=== PATIENT | male | born 1965 | race Hispanic/Latino ===

== ENCOUNTER 2020-05-17 10:40 | Emergency (ER) | payer OTHER ==
[~2020-05-17] VITALS: Ht 170.2 cm; Wt 99.8 kg
[2020-05-17] MEDS ORDERED: ALBUMIN (HUMAN) 25% 100 ML IV ONE ×2 (11:45→14:09)
[2020-05-17 12:01] LABS: BASOPHILS % (AUTO) 0.5 % (0.0-5.0); EOSINOPHILS % (AUTO) 0.5 % (0.0-8.0); HEMATOCRIT 29.1 % (42-54); LYMPHOCYTES % (AUTO) 20.3 % (21.0-51.0); MEAN CORPUSCULAR HEMOGLOBIN 32.3 pg (27.0-33.0); MEAN CORPUSCULAR HGB CONC 35.1 g/dL (32.0-36.0); MEAN CORPUSCULAR VOLUME 92.1 fL (79-99); MONOCYTES % (AUTO) 11.8 % (3.0-13.0); NEUTROPHILS % (AUTO) 66.6 % (40.0-77.0); PLATELET COUNT (AUTO) 109 K/uL (130-400); RED BLOOD CELL COUNT(AUTO) 3.16 MIL/uL (4.50-6.20); RED CELL DISTRIBUTION WIDTH 12.7 % (11.0-15.5); WHITE BLOOD COUNT (AUTO) 6.3 K/uL (4.8-10.8)
[2020-05-17 12:20] LABS: B-TYPE NATRIURETIC PEPTIDE 12 pg/mL (0-100)
[2020-05-17 12:21] LABS: CREATININE 0.6 mg/dL (0.5-1.5); POTASSIUM 4.6 mmol/L (3.5-5.1)
[2020-05-17 12:22] LABS: INR 1.26 (0.85-1.15); PARTIAL THROMBOPLASTIN TIME 31.7 SEC (26.3-35.5); PROTHROMBIN TIME 13.5 SEC (9.6-11.6)
[2020-05-17 12:25] LABS: BILIRUBIN,TOTAL 1.9 mg/dL (0.2-1.0); TOTAL PROTEIN, SERUM 6.1 g/dL (6.0-8.3)
[2020-05-17] MEDS ORDERED: ALBUMIN (HUMAN) 25% 200 ML IV ONE (12:30)
--- NOTE | 2020-05-17 13:05 | NUR ---
U/S GUIDED PARACENTESIS PROCEDURE PERFORMED BY DR. MEDINA. PUNCTURE SITE RIGHT LOWER QUADRANT OF ABDOMEN AND PATIENT TOLERATED PROCEDURE WELL. TOTAL REMOVED 9.0 LITERS OF CLOUDY YELLOW ASCITES FLUID. END OF PROCEDURE AT 1350. CATHETER REMOVED AND DRESSING APPLIED. NO BLEEDING NOTED. ALBUMIN 25% 50 GRAMS GIVEN DURING PROCEDURE PER [facility] ALBUMIN PROTOCOL. DRESSING DRY AND INTACT. CALLED REPORT TO ED NURSE, HOWARD ECHAVARRIA. PATIENT TRANSPORTED VIA STRETCHER TO ED AT 1410. PT STABLE, AAO X3 WITH NO C/O PAIN.
[2020-05-17 16:41] LABS: APPEARANCE BODY FLUID CLEAR (CLEAR); BODY FLUID WBC 117 /cu. mm.; COLOR,BODY FLUID YELLOW (LT YELLOW); SPECIMENTYPE,BODY FLUID ASCITES; TOTAL VOLUME,BODY FLUID 9000 mL
[2020-05-17 16:42] LABS: BODY FLUID RBC 556 /cu. mm.
[2020-05-17 16:45] LABS: BF LYMPHOCYTE 48 %; BF MONOCYTE 3 %; BF OTHER CELLS 5
== END 2020-05-17 15:06 | disposition home or self-care (01) ==
LOC: EDH 10:40
DX: R18.8 Other ascites (principal); K74.60 Unspecified cirrhosis of liver; Z90.49 Acquired absence of other specified parts of digestive tract
CPT/HCPCS: 36415; 49083; 71045; 80048; 80076; 82550; 83690; 83880; 84484; 85025; 85610; 85730; 87071; 87205; 88112; 88305; 89051; 93005; 96365; 99285; A4215; P9046 ×2

== ENCOUNTER 2020-06-16 00:58 | Inpatient (IN) | payer OTHER ==
[~2020-06-16] VITALS: Ht 170.2 cm; Wt 85.0 kg
[2020-06-16 01:18] LABS: BASOPHILS % (AUTO) 0.3 % (0.0-5.0); EOSINOPHILS % (AUTO) 2.6 % (0.0-8.0); HEMATOCRIT 26.6 % (42-54); LYMPHOCYTES % (AUTO) 25.5 % (21.0-51.0); MEAN CORPUSCULAR HEMOGLOBIN 31.7 pg (27.0-33.0); MEAN CORPUSCULAR HGB CONC 36.5 g/dL (32.0-36.0); MEAN CORPUSCULAR VOLUME 86.9 fL (79-99); MONOCYTES % (AUTO) 16.7 % (3.0-13.0); NEUTROPHILS % (AUTO) 54.6 % (40.0-77.0); PLATELET COUNT (AUTO) 101 K/uL (130-400); RED BLOOD CELL COUNT(AUTO) 3.06 MIL/uL (4.50-6.20); RED CELL DISTRIBUTION WIDTH 13.4 % (11.0-15.5); WHITE BLOOD COUNT (AUTO) 6.6 K/uL (4.8-10.8)
[2020-06-16 01:37] LABS: APPEARANCE,URINE Clear (CLEAR); BILIRUBIN,URINE Small (NEGATIVE); COLOR,URINE Dark Yellow (YELLOW); GLUCOSE, URINE (UA) Negative (NEGATIVE); KETONES,URINE Negative (NEGATIVE); LEUKOCYTE ESTERASE ,URINE Trace (NEGATIVE); NITRATE,URINE Positive (NEGATIVE); OCCULT BLOOD,URINE Negative (NEGATIVE); PH,URINE 5.5 (5.0-8.0); PROTEIN,URINE Negative (NEGATIVE)
[2020-06-16 01:37] LABS: ALBUMIN 1.5 g/dL (3.5-5.0); BILIRUBIN,TOTAL 3.1 mg/dL (0.2-1.0); CREATININE 0.9 mg/dL (0.5-1.5); POTASSIUM 4.7 mmol/L (3.5-5.1); TOTAL PROTEIN, SERUM 5.8 g/dL (6.0-8.3)
[2020-06-16 01:49] LABS: INR 1.39 (0.85-1.15); PARTIAL THROMBOPLASTIN TIME 40.6 SEC (26.3-35.5); PROTHROMBIN TIME 14.8 SEC (9.6-11.6)
[2020-06-16 01:57] LABS: BACTERIA,URINE Rare /HPF (None Seen); RBC,URINE 0-1 /HPF (0-1); SQUAMOUS EPITHELIAL CELL,UR Rare /HPF (0-2); WBC,URINE 0-1 /HPF (0-1)
[2020-06-16] MEDS ORDERED: ALBUMIN (HUMAN) 25% 200 ML IV ONE (10:13)
[2020-06-16] MEDS ORDERED: ALBUMIN (HUMAN) 25% 200 ML IV PRN (11:00)
--- NOTE | 2020-06-16 13:09 | NUR ---
U/S GUIDED PARACENTESIS PROCEDURE PERFORMED BY DR. MEDINA. PUNCTURE SITE RIGHT LOWER QUADRANT OF ABDOMEN AND PATIENT TOLERATED PROCEDURE WELL. TOTAL REMOVED 6.7 LITERS OF CLOUDY YELLOW ASCITES FLUID. END OF PROCEDURE AT 1255. CATHETER REMOVED AND DRESSING APPLIED. NO BLEEDING NOTED. ALBUMIN 25% 50 GRAMS GIVEN DURING PROCEDURE PER [facility] ALBUMIN PROTOCOL. DRESSING DRY AND INTACT. CALLED REPORT TO ED NURSE, HOWARD ASHER. PATIENT TRANSPORTED VIA STRETCHER TO ED AT 1310. PT STABLE, AAO X3 WITH NO C/O PAIN.
--- NOTE | 2020-06-16 13:15 | NUR ---
Discharge Assessment CM attempted dc assessment. Patient currently down for procedure. CM to follow up. CD
[2020-06-16 16:23] LABS: APPEARANCE BODY FLUID SLIGHTLY CLOUDY (CLEAR); COLOR,BODY FLUID YELLOW (LT YELLOW); SPECIMENTYPE,BODY FLUID ASCITES; TOTAL VOLUME,BODY FLUID 6700 mL
[2020-06-16 16:25] LABS: BODY FLUID WBC 167 /cu. mm.
[2020-06-16 16:26] LABS: BODY FLUID RBC 514 /cu. mm.
[2020-06-16 16:52] LABS: BF LYMPHOCYTE 50 %; BF MESOTHELIAL 21 %
[2020-06-16 20:04] VITALS: BP 98/60
[2020-06-16] MEDS: LACTULOSE 20 GM/30 ML UDCUP PO SCH (21:32)
[2020-06-16 23:38] VITALS: BP 96/61
[2020-06-17] MEDS ORDERED: SPIR50TA5 PO (02:54)
[2020-06-17] MEDS ORDERED: LISI1TAB29 PO (02:54)
[2020-06-17] MEDS ORDERED: ATOR20TA65 PO (02:54)
[2020-06-17] MEDS ORDERED: ROPI2TAB7 PO (02:54)
[2020-06-17 03:43] VITALS: BP 92/57
[2020-06-17] MEDS ORDERED: FURO20TA4 PO (04:27)
[2020-06-17 05:11] LABS: HEMATOCRIT 28.2 % (42-54); MEAN CORPUSCULAR HEMOGLOBIN 32.5 pg (27.0-33.0); MEAN CORPUSCULAR HGB CONC 37.2 g/dL (32.0-36.0); MEAN CORPUSCULAR VOLUME 87.3 fL (79-99); PLATELET COUNT (AUTO) 90 K/uL (130-400); RED BLOOD CELL COUNT(AUTO) 3.23 MIL/uL (4.50-6.20); RED CELL DISTRIBUTION WIDTH 13.4 % (11.0-15.5); WHITE BLOOD COUNT (AUTO) 6.7 K/uL (4.8-10.8)
[2020-06-17 05:42] LABS: CREATININE 0.8 mg/dL (0.5-1.5); POTASSIUM 4.3 mmol/L (3.5-5.1)
[2020-06-17 06:05] LABS: BAND NEUTROPHILS % (MANUAL) 1 % (0-2); EOSINOPHILS % (MANUAL) 1 % (1-6); LYMPHOCYTES % (MANUAL) 14 % (22-44); MONOCYTES % (MANUAL) 9 % (2-9); REACTIVE LYMPHOCYTES 2 % (0-0); SEGMENTED NEUTROPHILS % 73 % (40-70)
[2020-06-17 06:06] LABS: MAN.DIFF COMMENT-IMPRESSION MANUAL DIFFERENTIAL; PLATELET MORPHOLOGY COMMENT DECREASED
[2020-06-17 06:57] LABS: % IRON SATURATION 74.4 % (30-44)
[2020-06-17 07:30] VITALS: BP 100/65
--- NOTE | 2020-06-17 07:30 | NUR ---
ASSESSMENT ENCOUNTERED PT A&OX3, CALM COOPERATIVE AND DOES NOT APPEAR TO BE IN ANY DISTRESS NOR ANY NEURO DEFICITS PRESENT. PT DENIES PAIN, SOB, NAUSEA. PT IS AMBULATORY, GAIT STEADY AND STRONG WITH STAND BY ASSIST. CALL LIGHT WITHIN REACH.
[2020-06-17] MEDS: LACTULOSE 20 GM/30 ML UDCUP PO SCH ×2 (09:51→18:37)
[2020-06-17 11:00] VITALS: BP 135/36
--- NOTE | 2020-06-17 11:02 | NUR ---
RD NOTIFICATION Pt admitted with Hyponatremia related to Ascites and Liver cirrhosis. Pt s/p Paracentesis. Pt reports Good PO intake with no report of GI distress, PO intake at 100%. Monitored labs: Na 120, Cl 90, Ca 7.4, T. Bili 3.1, AST 52, Alk 188, NH3 79, Alb 1.5, Lipase 386. Recommend continue Heart Healthy diet order Recommend MVI QD Recommend Ensure QD RD provided Cirrhosis Nutrition Education via Phone, Handout faxed to Avery ([phone]), RN notified. RD to continue to monitor. Please notify as additional nutrition concerns arise. Thank you. Addendum: 06/17/20 at [address] Amended: Links added.
--- NOTE | 2020-06-17 11:43 | NUR ---
NUTRITION EDUCATION BHAVANI provided Cirrhosis Nutrition Education via telephone. RD answered all Pt questions. Pt verbalized understanding. Education handout faxed to [facility] ([phone])HOWARD notified. Addendum: 06/17/20 at [address] Amended: Links added.
--- NOTE | 2020-06-17 14:56 | NUR ---
CHART CHECK COMPLETED. Pt IS A 54 Y.O. MALE ADMITTED SECONDARY TO HYPONATREMIA. Pt HAS A PAST MEDICAL HISTORY SIGNIFICANT FOR CIRRHOSIS, ANEMIA, HEPATIC ENCEPHALOPATHY AND PARACENTESIS. Pt CURRENTLY ON REGULAR TEXTURE,THIN LIQUID DIET(HEART HEALTHY). PLEASE REQUEST FORMAL SKILLED SPEECH/SWALLOW EVALUATION IF Pt PRESENTS WITH +S/S OF ASPIRATION SUCH COUGH RESPONSE, THROAT CLEAR, OR WET VOCAL QUALITY DURING P.O. Addendum: 06/17/20 at 1458 by KATHY HERRERA, [facility] ST Amended: Links added.
--- NOTE | 2020-06-17 15:11 | NUR ---
DC PLAN VISITED WITH PATIENT. PATIENT LIVES WITH SPOUSE. INDEPENDENT ABLE TO PERFORM ADL'S. PATIENT HAS NO SERVICES OR DME'S. FEELS SAFE TO RETURN HOME. Addendum: 06/17/20 at 1513 by MATTEO CHAVARRIA RN CM Amended: Links added.
[2020-06-17 16:00] VITALS: BP 101/59
[2020-06-17 19:48] VITALS: BP 91/62
[2020-06-17] MEDS: MIDODRINE HCL 5 MG TABLET PO SCH (20:50)
[2020-06-17] MEDS ORDERED: ROPINIROLE HCL 1 MG TABLET PO SCH (21:00)
[2020-06-17 23:42] VITALS: BP 93/63
[2020-06-18 04:00] VITALS: BP 93/59
[2020-06-18 04:33] LABS: CREATININE 0.8 mg/dL (0.5-1.5); POTASSIUM 4.4 mmol/L (3.5-5.1)
[2020-06-18 07:17] VITALS: BP 100/64
[2020-06-18] MEDS: LACTULOSE 20 GM/30 ML UDCUP PO SCH (09:03)
[2020-06-18] MEDS: MIDODRINE HCL 5 MG TABLET PO SCH ×2 (09:04→14:00)
[2020-06-18 10:43] VITALS: BP 98/59
[2020-06-18] MEDS ORDERED: MIDO5TAB4 PO (12:40)
--- NOTE | 2020-06-18 17:59 | NUR ---
PATIENT DISCHARGE PATIENT DISCHARGE, IV DISCONTINUED, CATHLON INTACT, BLEEDING CONTROLLED, PATIENT TOLERATED WITHOUT INCIDENT. DISCUSSED WITH PATIENT NEW RX SENT ELECTRONICALLY TO [facility]. DISCUSSED WITH PATIENT WHAT MEDICATIONS TO CONTINUE AND STOP, IDENTIFIED BOTH WITH DIFFERENT COLORED HIGHLIGHTERS. PATIENT STATED HE UNDERSTOOD. DISCUSSED WITH PATIENT TO SCHEDULE AN APPOINTMENT WITH HIS PCP IF NEEDED. PATIENT STATED HE UNDERSTOOD AND HAD NO ADDITIONAL QUESTIONS.
== END 2020-06-18 19:15 | disposition home or self-care (01) | DRG 433 ==
LOC: EDH 00:58 → EDHIP 02:31 → 3AH 19:27
PROVIDERS: ADMIT Internal Medicine Nephrology; ATTEND Internal Medicine Nephrology
PROC: 0W9G3ZZ Drainage of Peritoneal Cavity, Percutaneous Approach (ICD-10-PCS; principal; 2020-06-16)
DX: K74.60 Unspecified cirrhosis of liver (principal); E87.1 Hypo-osmolality and hyponatremia; R18.8 Other ascites; E44.1 Mild protein-calorie malnutrition; K72.90 Hepatic failure, unspecified without coma; E87.70 Fluid overload, unspecified; I10 Essential (primary) hypertension; E78.00 Pure hypercholesterolemia, unspecified; I95.9 Hypotension, unspecified; D64.9 Anemia, unspecified; Z82.49 Family history of ischemic heart disease and other diseases of the circulatory system
CPT/HCPCS: 36415; 49083; 80048; 80053; 81001; 82140; 83540; 83550; 83690; 84300; 85025; 85610; 85730; 87071; 87088; 87205; 89051; 93005; 96365; G0378; P9046

== ENCOUNTER 2020-06-22 09:12 | Emergency (ER) | payer OTHER ==
[~2020-06-22 09:12] MED LIST: ATOR20TA65 PO; MIDO5TAB4 PO; ROPI2TAB7 PO; SPIR50TA5 PO
[2020-06-22 09:35] LABS: BASOPHILS % (AUTO) 0.4 % (0.0-5.0); EOSINOPHILS % (AUTO) 2.1 % (0.0-8.0); HEMATOCRIT 26.9 % (42-54); LYMPHOCYTES % (AUTO) 20.9 % (21.0-51.0); MEAN CORPUSCULAR HEMOGLOBIN 31.7 pg (27.0-33.0); MEAN CORPUSCULAR HGB CONC 36.4 g/dL (32.0-36.0); MEAN CORPUSCULAR VOLUME 87.1 fL (79-99); MONOCYTES % (AUTO) 15.6 % (3.0-13.0); NEUTROPHILS % (AUTO) 60.6 % (40.0-77.0); PLATELET COUNT (AUTO) 104 K/uL (130-400); RED BLOOD CELL COUNT(AUTO) 3.09 MIL/uL (4.50-6.20); RED CELL DISTRIBUTION WIDTH 14.1 % (11.0-15.5); WHITE BLOOD COUNT (AUTO) 7.3 K/uL (4.8-10.8)
[2020-06-22 09:48] LABS: INR 1.31 (0.85-1.15)
[2020-06-22 09:52] LABS: BILIRUBIN,TOTAL 3.3 mg/dL (0.2-1.0); CREATININE 1.4 mg/dL (0.5-1.5); POTASSIUM 5.5 mmol/L (3.5-5.1); TOTAL PROTEIN, SERUM 6.2 g/dL (6.0-8.3)
[2020-06-22] MEDS ORDERED: ALBUMIN (HUMAN) 25% 100 ML IV ONE (12:10)
--- NOTE | 2020-06-22 16:39 | NUR ---
U/S GD PARACENTESIS PROCEDURE PERFORMED BY DR Griselda MEDINA. PUNCTURE SITE RLQ AND PATIENT TOLERATED PROCEDURE WELL. TOTAL REMOVED 6.7 LITERS OF CLOUDY YELLOW FLUID. ALBUMIN 25% 25 GRAMS IV GIVEN DURING PROCEDURE. SPECIMEN SENT TO LAB. END OF PROCEDURE AT 1300. CATHETER REMOVED AND DRESSING APPLIED. REPORT GIVEN TO HOWARD MONTGOMERY AND PATIENT TRANSPORTED TO ED14 VIA STETCHER. AAO X3 WITH NO C/O PAIN. SPECIMEN SENT TO LAB.
[2020-06-22 19:38] LABS: APPEARANCE BODY FLUID SLIGHTLY CLOUDY (CLEAR); COLOR,BODY FLUID LT YELLOW (LT YELLOW); SPECIMENTYPE,BODY FLUID ASCITES; TOTAL VOLUME,BODY FLUID 6300 mL
[2020-06-22 19:39] LABS: BODY FLUID WBC 205 /cu. mm.
[2020-06-22 19:40] LABS: BODY FLUID RBC 1300 /cu. mm.
[2020-06-22 19:45] LABS: BF LYMPHOCYTE 33 %; BF MESOTHELIAL 22 %; BF MONOCYTE 1 %
== END 2020-06-22 15:12 | disposition home or self-care (01) ==
LOC: EDH 09:12
DX: K70.31 Alcoholic cirrhosis of liver with ascites (principal); I10 Essential (primary) hypertension; E78.00 Pure hypercholesterolemia, unspecified; Z90.49 Acquired absence of other specified parts of digestive tract
CPT/HCPCS: 36415; 49083; 80053; 85025; 85610; 85730; 87071; 87205; 89051; 96365; 99285; A4215; P9046

== ENCOUNTER 2020-06-28 08:24 | Inpatient (IN) | payer OTHER ==
[~2020-06-28] VITALS: Ht 170.2 cm; Wt 96.9 kg
[2020-06-28] MEDS ORDERED: SODIUM BICARB 8.4% 50ML SYRINGE IVP ONE (08:32)
[2020-06-28 08:50] LABS: BASOPHILS % (AUTO) 0.2 % (0.0-5.0); EOSINOPHILS % (AUTO) 0.7 % (0.0-8.0); HEMATOCRIT 26.8 % (42-54); LYMPHOCYTES % (AUTO) 17.6 % (21.0-51.0); MEAN CORPUSCULAR HGB CONC 36.6 g/dL (32.0-36.0); MEAN CORPUSCULAR VOLUME 87.6 fL (79-99); MONOCYTES % (AUTO) 12.1 % (3.0-13.0); PLATELET COUNT (AUTO) 119 K/uL (130-400); RED BLOOD CELL COUNT(AUTO) 3.06 MIL/uL (4.50-6.20); WHITE BLOOD COUNT (AUTO) 8.6 K/uL (4.8-10.8)
[2020-06-28 09:08] LABS: INR 1.3 (0.85-1.15); PARTIAL THROMBOPLASTIN TIME 35.6 SEC (26.3-35.5); PROTHROMBIN TIME 13.9 SEC (9.6-11.6)
[2020-06-28 09:09] LABS: BILIRUBIN,TOTAL 3.8 mg/dL (0.2-1.0); CREATININE 1.2 mg/dL (0.5-1.5); POTASSIUM 5.2 mmol/L (3.5-5.1); TOTAL PROTEIN, SERUM 6.2 g/dL (6.0-8.3)
[2020-06-28] MEDS ORDERED: FLUDROCORTISONE ACETATE 0.1 MG TABLET PO SCH (12:00)
[2020-06-28] MEDS ORDERED: ALBUMIN (HUMAN) 25% 200 ML IV ONE (12:12)
--- NOTE | 2020-06-28 14:15 | NUR ---
U/S GD PARACENTESIS PROCEDURE PERFORMED BY DR Rita BATES. PUNCTURE SITE RLQ AND PATIENT TOLERATED PROCEDURE WELL. TOTAL REMOVED 6 LITERS OF CLOUDY YELLOW FLUID. ALBUMIN 25% 50 GRAMS IV GIVEN DURING PROCEDURE. SPECIMEN SENT TO LAB. END OF PROCEDURE AT 1415. CATHETER REMOVED AND DRESSING APPLIED. REPORT GIVEN TO HOWARD ISBELL AND PATIENT TRANSPORTED TO ED 13 VIA STETCHER AT 1415. AAO X3 WITH NO C/O PAIN. SPECIMEN SENT TO LAB.
[2020-06-28 17:08] LABS: APPEARANCE BODY FLUID SLIGHTLY CLOUDY (CLEAR); COLOR,BODY FLUID YELLOW (LT YELLOW); SPECIMENTYPE,BODY FLUID ASCITES; TOTAL VOLUME,BODY FLUID 6000 mL
[2020-06-28 17:09] LABS: BODY FLUID RBC 1349 /cu. mm.; BODY FLUID WBC 62 /cu. mm.
[2020-06-28 17:43] LABS: BF LYMPHOCYTE 37 %; BF MONOCYTE 15 %; BF OTHER CELLS 7
[2020-06-28 18:58] VITALS: BP 113/73
[2020-06-28 20:10] VITALS: BP 108/58
[2020-06-28 23:50] VITALS: BP 91/57
[2020-06-29 03:39] VITALS: BP 98/63
[2020-06-29 04:28] LABS: MEAN CORPUSCULAR HEMOGLOBIN 32.1 pg (27.0-33.0); MEAN CORPUSCULAR HGB CONC 36.9 g/dL (32.0-36.0); PLATELET COUNT (AUTO) 99 K/uL (130-400); RED BLOOD CELL COUNT(AUTO) 2.99 MIL/uL (4.50-6.20); RED CELL DISTRIBUTION WIDTH 13.9 % (11.0-15.5); WHITE BLOOD COUNT (AUTO) 6.8 K/uL (4.8-10.8)
[2020-06-29 04:31] LABS: CREATININE 0.8 mg/dL (0.5-1.5); POTASSIUM 4.9 mmol/L (3.5-5.1)
[2020-06-29 04:55] LABS: BAND NEUTROPHILS % (MANUAL) 6 % (0-2); EOSINOPHILS % (MANUAL) 2 % (1-6); LYMPHOCYTES % (MANUAL) 20 % (22-44); MAN.DIFF COMMENT-IMPRESSION MANUAL DIFFERENTIAL; MONOCYTES % (MANUAL) 6 % (2-9); SEGMENTED NEUTROPHILS % 66 % (40-70)
[2020-06-29 04:56] LABS: PLATELET MORPHOLOGY COMMENT SLIGHTLY DECREASED
[2020-06-29 08:00] VITALS: BP 100/65
[2020-06-29] MEDS: FLUDROCORTISONE ACETATE 0.1 MG TABLET PO SCH (09:19)
[2020-06-29 11:00] VITALS: BP 97/62
[2020-06-29] MEDS: MIDODRINE HCL 5 MG TABLET PO SCH ×2 (14:26→19:39)
--- NOTE | 2020-06-29 15:26 | NUR ---
1516 patient signed IM Letter, I faxed IM Letter to [phone] and placed in chart under consent tab.
--- NOTE | 2020-06-29 16:05 | NUR ---
OREN NOTE/IA UNABLE TO MEET WITH PATIENT IN ROOM, NEXT OF KIN CALLED, RELL NOVAK. PER DAUGHTER, PATIENT LIVES WITH SPOUSE, IS INDEPENDENT WITH ADLS, HAS USE OF CANE, NO HOME HEALTH OR PROVIDER SERVICES, AND FEELS SAFE FOR FATHER TO RETURN HOME ONCE DISCHARGED. Addendum: 06/29/20 at 1738 by YOSELIN LIZAMA RN CM Amended: Links added.
[2020-06-29 17:06] VITALS: BP 95/61
[2020-06-29] MEDS ORDERED: FURO20TA4 PO (19:05)
[2020-06-29 19:39] VITALS: BP 104/63
--- NOTE | 2020-06-29 20:00 | NUR ---
CALM Pt aao x 3,denies pain or discomfort.
--- NOTE | 2020-06-29 22:00 | NUR ---
SLEEP Pt sleeping,respirations unlabored.Arousable.
[2020-06-29 23:28] VITALS: BP 100/65
[2020-06-30] VITALS (30 sets, daily range): BP systolic 80–114; BP diastolic 21–75
--- NOTE | 2020-06-30 00:30 | NUR ---
RESTING Pt asleep,respirations even and unlabored.
[2020-06-30] MEDS ORDERED: DEXTROSE 50%-WATER 50 ML DISP.SYRIN IV ONE (03:14)
--- NOTE | 2020-06-30 03:15 | NUR ---
UNAROUSABLE Pt.moaning,unarousable.Vs taken bp 108/66,hr 103,resp rate 18,02 sat98%.Hob [address] Avery and he called back,notified of pt.s status.
[2020-06-30] MEDS ORDERED: LACTULOSE 20 GM/30 ML UDCUP ONE ×2 (03:39→05:13)
--- NOTE | 2020-06-30 03:40 | NUR ---
NGT Ngt placed per Katerina Corley RN.Placement verified via auscultation,Lactulose given.ABG,labs drawn this time.
[2020-06-30 03:48] LABS: ABG BASE EXCESS -1.9 mmol/L (-2.0-3.0); ABG HCO3 18.9 mmol/L (21.0-28.0); ABG OXYGEN SATURATION 98.3 % (95.0-99.0); ABG PCO2 24 mmHg (35-48)
[2020-06-30] MEDS ORDERED: POTASSIUM CHLORIDE 20MEQ/100ML 0 ML IV ONE (04:08)
[2020-06-30] MEDS ORDERED: LIDOCAINE HCL-MPF 1% 2ML VIAL ONE (04:12)
--- NOTE | 2020-06-30 04:20 | NUR ---
KAYEXALATE Kayexaate given for k+ 6.1.Dr Avery was notified re critical lab value.Pt appears nauseated,Medicated with Zofran IV.Dr Avery made aware re pt.s being obtunded and hard to arouse,he said leave pt on Med surg he will come to see pt soon.Placed pt on telemetry,sinus rhythm 90's as per telemetry nurse.Aspirations ans seizure precautions initiated.Hooked to portable vital signs machine.
[2020-06-30] MEDS ORDERED: SODIUM POLYSTYRENE SULFONATE 15 GM/60 ML ML ONE (04:21)
[2020-06-30] MEDS ORDERED: ONDANSETRON HCL 4 MG/2 ML VIAL ONE (04:23)
[2020-06-30] MEDS ORDERED: ONDANSETRON HCL 4 MG/2 ML VIAL IVP PRN (05:00)
[2020-06-30] MEDS ORDERED: SODIUM POLYSTYRENE SULFONATE 15 GM/60 ML ML PO SCH (05:00)
[2020-06-30 05:14] LABS: POTASSIUM 6.1 mmol/L (3.5-5.1)
[2020-06-30 05:15] LABS: CREATININE 1.2 mg/dL (0.5-1.5)
[2020-06-30] MEDS: LACTULOSE 20 GM/30 ML UDCUP PO SCH ×3 (05:38→18:00)
[2020-06-30] MEDS ORDERED: LACT10SO62 PO (05:48)
--- NOTE | 2020-06-30 05:48 | NUR ---
Pts Sarai Serafin notified re pt.s change in status.
[2020-06-30 05:56] LABS: BASOPHILS % (AUTO) 0.1 % (0.0-5.0); EOSINOPHILS % (AUTO) 0.1 % (0.0-8.0); LYMPHOCYTES % (AUTO) 11.9 % (21.0-51.0); MEAN CORPUSCULAR HEMOGLOBIN 31.4 pg (27.0-33.0); MEAN CORPUSCULAR HGB CONC 36.3 g/dL (32.0-36.0); MEAN CORPUSCULAR VOLUME 86.5 fL (79-99); MONOCYTES % (AUTO) 9.6 % (3.0-13.0); NEUTROPHILS % (AUTO) 77.9 % (40.0-77.0); PLATELET COUNT (AUTO) 166 K/uL (130-400); RED BLOOD CELL COUNT(AUTO) 3.47 MIL/uL (4.50-6.20); RED CELL DISTRIBUTION WIDTH 13.9 % (11.0-15.5); WHITE BLOOD COUNT (AUTO) 11.4 K/uL (4.8-10.8)
--- NOTE | 2020-06-30 06:13 | NUR ---
STATUS Pt remains unarousable to verbal stumuli,opens eyes briefly to pain.Respirations unlabored.Hob up 45 degrees,on 02 2lpm via Nc sat 100%.Bp 116/65,hr 90.s RR 16.
--- NOTE | 2020-06-30 06:36 | NUR ---
CALM Pt appears calm,eyes closed.Respirations even and unlabored.Moans when turned to his sides.Placed adult diaper,pt has not had a bowel movement yet.
[2020-06-30] MEDS ORDERED: SODIUM CHLORIDE 1,000 MG TAB PO SCH (09:15)
[2020-06-30] MEDS: FLUDROCORTISONE ACETATE 0.1 MG TABLET PO SCH (09:46)
--- NOTE | 2020-06-30 11:14 | NUR ---
BHAVANI NOTIFICATION - TUBE FEEDING Recommend Initiate continuous Suplena 1.8 @15mls/hr. Goal rate 45mls/hr. Recommend Flushes at 125 q6hrs. Recommendations faxed to HOWARD Acevedo notified. NUTRITION NOTE: Pt admitted with Cirrhosis, s/p large volume paracentesis. Pt obtunded. NGT placement. Decreased serum sodium; NaCl tablets in place. Elevated serum NH3, Lactulose in place, low protein tube feeding formula. Elevated serum potassium, low potassium tube feeding formula, lactulose in place. RD to continue to monitor. Please notify as additional nutrition concerns arise. Thank you. Addendum: 06/30/20 at [address] Amended: Links added.
[2020-06-30] MEDS: MIDODRINE HCL 5 MG TABLET PO SCH ×2 (13:29→19:58)
--- NOTE | 2020-06-30 16:30 | NUR ---
SEIZURE I WENT TO CHECK ON PATIENT AND I WALKED IN PT WAS IN AN ACTIVE SEIZURE. I CALLED PATRICIA CARSON RN, TO HELP WITH PATIENT TO SUCTION. THEIR WERE NO ORDERS FOR ATIVAN AT THE TIME. THEN PATIENT HAD NO B/P AND WENT LIMP STOP SEIZING. CHECK FOR PULSE AND NO PULSE WAS FELT AND I STARTED CPR AND CALLED A CODE. CPR WAS DONE ONLY FOR ONE CYCLE, CODE TIME ARRIVED REFER TO CODE SHEET.
[2020-06-30] MEDS ORDERED: LORAZEPAM 2 MG/ML 1 ML VIAL ONE (16:36)
[2020-06-30 16:45] LABS: ABG BASE EXCESS -23.7 mmol/L (-2.0-3.0); ABG HCO3 9.7 mmol/L (21.0-28.0); ABG OXYGEN SATURATION 98.5 % (95.0-99.0); ABG PCO2 54 mmHg (35-48)
[2020-06-30] MEDS ORDERED: PHARMACY COMMUNICATION MISC SCH (17:00)
[2020-06-30] MEDS: SODIUM CHLORIDE 1,000 MG TAB PO SCH (17:00)
--- NOTE | 2020-06-30 17:05 | NUR ---
STATUS CHANGE DAUGHTER CALLED (RELL SCARLET) INFORMED THAT FATHER HAD A CHANGE IN STATUS, AND A CODE BLUE WAS CALLED. A PATIENT TAKING TO FOR STAT CT OF THE HEAD WITH PRIMARY AND OTHERS SUPPORTING PATIENT BREATHING AND MONITORING TELEMETRY AND THEN WILL BE TRANSFERRED TO ICU BED 14.
[2020-06-30] MEDS ORDERED: PROPOFOL 1000 MG/100 ML 100 ML IV SCH (17:15)
--- NOTE | 2020-06-30 17:20 | NUR ---
SPOUSE CALLED SPOUSE CALLED AND WAS INFORMED OF STATUS CHANGES AND THAT HE WAS MOVED TO BED 14 ICU
--- NOTE | 2020-06-30 17:20 | NUR ---
STATUS Received pt to room 14 in day patient ICU from room 316. Pt intubated - vent settings as recorded. Pt non-responsive to stimulation. VS as recorded. Non functional PIV in place - 18ga PIV x2 inserted using aseptic technique shortly after arrival. With this stimulation, pt still non-responsive. ST on tele. Right nare NGT in place - placement verified per routine - NGT clamped. Diminished bibasilar breath sounds. Abd round, soft with decreased bowel sounds. Spoke to POCKET AND PULLEY MACHINE OPERATOR transmission repairer for critical care - orders received. Refer to eMAR/EMR.
[2020-06-30] MEDS ORDERED: SODIUM BICARB 50MEQ 50ML VIAL IV STA ×2 (17:41→17:43)
[2020-06-30] MEDS: SODIUM BICARB 8.4% 50ML SYRING 150 MEQ in DEXTROSE 5%-WATER 1,000 ML IV SCH (17:45)
[2020-06-30] MEDS ORDERED: SODIUM BICARB 50MEQ 50ML VIAL ONE (17:46)
[2020-06-30] MEDS: SODIUM POLYSTYRENE SULFONATE 15 GM/60 ML ML RC SCH (18:00)
[2020-06-30] MEDS ORDERED: FOSPHENYTOIN SODIUM 1,000 MG in SODIUM CHLORIDE 0.9% 50 ML IJ ONE (18:30)
[2020-06-30 19:13] LABS: ABG BASE EXCESS -7.3 mmol/L (-2.0-3.0); ABG HCO3 17.3 mmol/L (21.0-28.0); ABG OXYGEN SATURATION 95.4 % (95.0-99.0); ABG PCO2 32 mmHg (35-48)
[2020-06-30] MEDS: SODIUM CHLORIDE 0.9% 1000ML 1,000 ML IV SCH (19:30)
[2020-06-30] MEDS ORDERED: SODIUM CHLORIDE 0.9% 1000ML 1,000 ML IV ONE (19:31)
[2020-06-30] MEDS: VASOPRESSIN 40 UNITS in SODIUM CHLORIDE 0.9% 40 ML IV SCH (19:56)
[2020-06-30 20:57] LABS: CREATINE KINASE, TOTAL 293 U/L (21-232); MYOGLOBIN 7936 ng/mL (10-92); TROPONIN I < 0.04 ng/mL (0.00-0.06)
--- NOTE | 2020-06-30 21:35 | NUR ---
COUGH AND GAG REFLEX INTACT. NOTED SEIZURE ACTIVITY LIKE BITING ET TUBE AFTER NOXIOUS STIMULI, TWITCHING CORE AND EXTREMITIES.
[2020-06-30 21:58] LABS: APPEARANCE,URINE SL CLOUDY (CLEAR); BILIRUBIN,URINE MODERATE (NEGATIVE); COLOR,URINE ORANGE (YELLOW); GLUCOSE, URINE (UA) NEGATIVE (NEGATIVE); KETONES,URINE 5 mg/dL (NEGATIVE); LEUKOCYTE ESTERASE ,URINE NEGATIVE (NEGATIVE); NITRATE,URINE POSITIVE (NEGATIVE); OCCULT BLOOD,URINE TRACE-INTACT (NEGATIVE); PH,URINE 5.5 (5.0-8.0); PROTEIN,URINE 30 mg/dL (NEGATIVE); UROBILINOGEN,URINE >=8.0 mg/dL (0.2-1.0)
[2020-06-30 22:03] LABS: BACTERIA,URINE Few /HPF (None Seen); MUCUS,URINE Moderate LPF (None Seen); RBC,URINE 0-1 /HPF (0-1); SQUAMOUS EPITHELIAL CELL,UR Few /HPF (0-2)
[2020-06-30] MEDS ORDERED: MIDAZOLAM 100MG-0.9% NS 100ML 100 ML IV ONE (22:14)
[2020-07-01] VITALS (53 sets, daily range): BP systolic 80–134; BP diastolic 52–89
[2020-07-01 00:12] LABS: ABG BASE EXCESS -3.6 mmol/L (-2.0-3.0); ABG HCO3 18.2 mmol/L (21.0-28.0); ABG PCO2 24 mmHg (35-48)
[2020-07-01] MEDS: SODIUM BICARB 8.4% 50ML SYRING 150 MEQ in DEXTROSE 5%-WATER 1,000 ML IV SCH (00:36)
[2020-07-01] MEDS: LACTULOSE 20 GM/30 ML UDCUP PO SCH ×4 (00:36→16:59)
[2020-07-01] MEDS ORDERED: FENTANYL CITRATE PF 0.05 MG/ML 1,000 MCG in SODIUM CHLORIDE 0.9% 100 ML IVPB SCH (00:45)
[2020-07-01] MEDS ORDERED: MIDAZOLAM 100MG-0.9% NS 100ML 100ML BAG IV ONE (00:45)
[2020-07-01 00:53] LABS: CARBON DIOXIDE 19 mmol/L (21-32); CREATININE 2.7 mg/dL (0.5-1.5); GLOMERULAR FILTR. RATE CALC 26 mL/min (>60); GLUCOSE,RANDOM 152 mg/dL (70-105); MYOGLOBIN 7367 ng/mL (10-92); POTASSIUM 5.3 mmol/L (3.5-5.1); SODIUM SERUM 122 mmol/L (136-145); TROPONIN I < 0.04 ng/mL (0.00-0.06); UREA NITROGEN, BLOOD 31 mg/dL (7-18)
[2020-07-01 01:02] LABS: CHLORIDE 88 mmol/L (101-111)
[2020-07-01 01:03] LABS: CREATINE KINASE, TOTAL 518 U/L (21-232)
[2020-07-01] MEDS ORDERED: MIDAZOLAM HCL 100 MG in SODIUM CHLORIDE 0.9% 100 ML IV SCH (01:30)
[2020-07-01] MEDS ORDERED: NOREPINEPHRINE 4MG/NS 250ML 250 ML IV ONE (02:08)
[2020-07-01 04:20] LABS: MEAN CORPUSCULAR HGB CONC 36.8 g/dL (32.0-36.0); RED BLOOD CELL COUNT(AUTO) 3.22 MIL/uL (4.50-6.20); RED CELL DISTRIBUTION WIDTH 14.2 % (11.0-15.5); WHITE BLOOD COUNT (AUTO) 13.5 K/uL (4.8-10.8)
[2020-07-01 05:27] LABS: ABG BASE EXCESS -0.9 mmol/L (-2.0-3.0); ABG HCO3 20.5 mmol/L (21.0-28.0); ABG OXYGEN SATURATION 95.4 % (95.0-99.0); ABG PCO2 26 mmHg (35-48)
[2020-07-01 05:28] LABS: ALANINE AMINOTRANSFERASE 36 U/L (12-78); ALBUMIN 2.1 g/dL (3.5-5.0); ASPARTATE AMINOTRANSFERASE 69 U/L (10-37); BILIRUBIN,TOTAL 4.3 mg/dL (0.2-1.0); CARBON DIOXIDE 23 mmol/L (21-32); CREATININE 2.7 mg/dL (0.5-1.5); GLOMERULAR FILTR. RATE CALC 26 mL/min (>60); GLUCOSE,RANDOM 135 mg/dL (70-105); POTASSIUM 4.6 mmol/L (3.5-5.1); SODIUM SERUM 124 mmol/L (136-145); TOTAL PROTEIN, SERUM 5.3 g/dL (6.0-8.3); TROPONIN I < 0.04 ng/mL (0.00-0.06); UREA NITROGEN, BLOOD 32 mg/dL (7-18)
[2020-07-01] MEDS ORDERED: MIDAZOLAM 100MG-0.9% NS 100ML 100 ML IV ONE ×2 (05:35→22:45)
[2020-07-01] MEDS ORDERED: MIDAZOLAM 100MG-0.9% NS 100ML 100ML BAG IV SCH (06:15)
[2020-07-01 06:28] LABS: MYOGLOBIN 7300 ng/mL (10-92)
[2020-07-01 06:30] LABS: CHLORIDE 89 mmol/L (101-111)
[2020-07-01 06:31] LABS: CREATINE KINASE, TOTAL 586 U/L (21-232)
[2020-07-01] MEDS: NOREPINEPHRINE 4MG/NS 250ML 250 ML IV SCH ×6 (07:35→16:07)
[2020-07-01] MEDS: SODIUM CHLORIDE 1,000 MG TAB PO SCH ×3 (08:00→16:08)
[2020-07-01] MEDS: FLUDROCORTISONE ACETATE 0.1 MG TABLET PO SCH ×2 (09:00→09:49)
[2020-07-01] MEDS: MIDODRINE HCL 5 MG TABLET PO SCH ×5 (09:00→20:45)
[2020-07-01 09:18] LABS: CREATININE 2.5 mg/dL (0.5-1.5)
[2020-07-01] MEDS ORDERED: PHENYLEPHRINE HCL 100 MG in SODIUM CHLORIDE 0.9% 250 ML IV SCH (09:30)
[2020-07-01] MEDS ORDERED: VANCOMYCIN PROTOCOL PER PHARMACY IV SCH (09:30)
[2020-07-01 09:40] LABS: INR 1.61 (0.85-1.15); PARTIAL THROMBOPLASTIN TIME 42.8 SEC (26.3-35.5); PROTHROMBIN TIME 17.1 SEC (9.6-11.6)
[2020-07-01] MEDS ORDERED: PHENYLEPHRINE HCL 10/NS 250ML IV PRN ×2 (09:45)
[2020-07-01] MEDS ORDERED: VANCOMYCIN 1.25 GM in SODIUM CHLORIDE 0.9% 250 ML IV SCH (09:45)
[2020-07-01] MEDS: SODIUM CHLORIDE 0.9% 1000ML 1,000 ML IV SCH ×2 (09:50→17:23)
[2020-07-01] MEDS: ZOSYN 3.375GM+NS 50ML 50 ML IV SCH ×2 (10:02→20:44)
--- NOTE | 2020-07-01 10:56 | NUR ---
RD UPDATE Pt s/p intubation. Pt with significant NG output. No tube feedings at this time. Monitored labs: Na 126, BUN 33, Cr 2.5, GFR 29, TCK 586. Pt transferred to Patient 14. Tube feeding order error of goal of 125mls per hour. Tube Feeding Goal Correction: 45mls/hr. Corrected tube feeding order faxed to Pt Station. RN notified. Tube feeding initiation held due to high NG Output. RD to continue to monitor. Please notify as additional nutrition concerns arise. Thank you.
[2020-07-01] MEDS: METOCLOPRAMIDE 10 MG/2 ML VIAL IVP SCH ×2 (11:50→16:06)
[2020-07-01] MEDS: PHENYLEPHRINE HCL 100 MG in SODIUM CHLORIDE 0.9% 250 ML IV SCH (12:38)
[2020-07-01] MEDS ORDERED: COMPOUND IV MISC 1 EACH IVSOLN MISC PRN (13:00)
[2020-07-01 13:13] LABS: CREATININE 3.1 mg/dL (0.5-1.5); POTASSIUM 5.2 mmol/L (3.5-5.1)
[2020-07-01] MEDS ORDERED: LACTATED RINGERS 1000ML 2,000 ML IV ONE (13:25)
[2020-07-01] MEDS: LEVETIRACETAM 250 MG in SODIUM CHLORIDE 0.9% 100 ML IV SCH (13:58)
[2020-07-01] MEDS ORDERED: LACTATED RINGERS 1000ML 1,000 ML IV SCH (14:15)
[2020-07-01] MEDS: FOSPHENYTOIN SODIUM 100 MG in SODIUM CHLORIDE 0.9% 50 ML IV SCH ×2 (14:26→20:44)
[2020-07-01] MEDS: LACTATED RINGERS 1000ML IV SCH ×2 (14:27→22:49)
[2020-07-01] MEDS ORDERED: VANCOMYCIN 1.5 GM in SODIUM CHLORIDE 0.9% 250 ML IV ONE (14:30)
[2020-07-01] MEDS ORDERED: COMPOUND IV REFRIGERATED 1 EACH IVSOLN MISC PRN (14:30)
[2020-07-01] MEDS ORDERED: FENTANYL 2500MCG+NS 250ML 250 ML IV SCH (14:45)
[2020-07-01] MEDS ORDERED: PHARMACY COMMUNICATION MISC SCH (16:15)
[2020-07-01] MEDS: SODIUM POLYSTYRENE SULFONATE 15 GM/60 ML ML RC SCH (16:22)
[2020-07-01 17:22] LABS: CREATININE 2.1 mg/dL (0.5-1.5)
[2020-07-01] MEDS: VASOPRESSIN 40 UNITS in SODIUM CHLORIDE 0.9% 40 ML IV SCH (17:34)
[2020-07-01] MEDS: NOREPINEPHRINE BITARTRATE 32 MG in SODIUM CHLORIDE 0.9% 250 ML IV SCH (18:07)
[2020-07-01] MEDS ORDERED: DEXTROSE 50%-WATER 50 ML DISP.SYRIN IV ONE (18:18)
[2020-07-01] MEDS: DEXTROSE 50%-WATER 50 ML DISP.SYRIN IV PRN (18:24)
[2020-07-01] MEDS ORDERED: GLUCAGON 1MG KIT 1 MG ML IM PRN (18:30)
[2020-07-01 21:35] LABS: CREATININE 2.2 mg/dL (0.5-1.5)
[2020-07-02] VITALS (23 sets, daily range): BP systolic 93–135; BP diastolic 59–96
[2020-07-02] MEDS: LACTULOSE 20 GM/30 ML UDCUP PO SCH ×2 (00:14→05:58)
[2020-07-02] MEDS: LEVETIRACETAM 250 MG in SODIUM CHLORIDE 0.9% 100 ML IV SCH ×2 (00:16→13:38)
[2020-07-02 00:48] LABS: CREATININE 1.8 mg/dL (0.5-1.5); POTASSIUM 4.7 mmol/L (3.5-5.1)
[2020-07-02 03:44] LABS: BASOPHILS % (AUTO) 0.2 % (0.0-5.0); EOSINOPHILS % (AUTO) 0.1 % (0.0-8.0); HEMATOCRIT 26.2 % (42-54); LYMPHOCYTES % (AUTO) 10.5 % (21.0-51.0); MEAN CORPUSCULAR HEMOGLOBIN 31.6 pg (27.0-33.0); MEAN CORPUSCULAR HGB CONC 35.9 g/dL (32.0-36.0); MEAN CORPUSCULAR VOLUME 88.2 fL (79-99); MONOCYTES % (AUTO) 7.8 % (3.0-13.0); NEUTROPHILS % (AUTO) 81.1 % (40.0-77.0); PLATELET COUNT (AUTO) 129 K/uL (130-400); RED BLOOD CELL COUNT(AUTO) 2.97 MIL/uL (4.50-6.20); RED CELL DISTRIBUTION WIDTH 14.7 % (11.0-15.5); WHITE BLOOD COUNT (AUTO) 12.9 K/uL (4.8-10.8)
[2020-07-02 04:07] LABS: CREATININE 1.7 mg/dL (0.5-1.5); MAGNESIUM 2.1 mg/dL (1.80-2.40); PHOSPHORUS 4.7 mg/dL (2.5-4.9); POTASSIUM 4.4 mmol/L (3.5-5.1)
[2020-07-02 04:49] LABS: ABG BASE EXCESS -1.7 mmol/L (-2.0-3.0); ABG HCO3 19.5 mmol/L (21.0-28.0); ABG OXYGEN SATURATION 98.1 % (95.0-99.0); ABG PCO2 25 mmHg (35-48)
[2020-07-02] MEDS: SODIUM CHLORIDE 0.9% 1000ML 1,000 ML IV SCH ×3 (05:56→23:47)
[2020-07-02] MEDS: FOSPHENYTOIN SODIUM 100 MG in SODIUM CHLORIDE 0.9% 50 ML IV SCH ×3 (05:58→21:51)
--- NOTE | 2020-07-02 06:40 | NUR ---
DONT FORGET TO CLARIFY NPO STATUS. CONFLICTING ORDERS. SMALL BOWEL OBSTRUCTION CONFIRMED AND SURGERY IS CONSULTED TO SEE PATIENT, YET THERE ARE ORDERS FOR TUBE FEEDING AND MEDS.
[2020-07-02] MEDS: SODIUM CHLORIDE 1,000 MG TAB PO SCH ×2 (08:00→17:00)
[2020-07-02] MEDS: FLUDROCORTISONE ACETATE 0.1 MG TABLET PO SCH (09:00)
[2020-07-02] MEDS: MIDODRINE HCL 5 MG TABLET PO SCH ×3 (09:00→21:00)
[2020-07-02] MEDS: ZOSYN 3.375GM+NS 50ML 50 ML IV SCH ×2 (10:04→21:48)
[2020-07-02] MEDS: METOCLOPRAMIDE 10 MG/2 ML VIAL IVP SCH ×3 (10:05→17:51)
[2020-07-02] MEDS: VANCOMYCIN 750MG + NS 250 ML IV SCH ×2 (10:10)
--- NOTE | 2020-07-02 11:18 | NUR ---
Surgery consult Dr. Menjivar's office re-contacted regarding surgery consult.
[2020-07-02] MEDS: LACTULOSE 20 GM/30 ML UDCUP PR SCH ×4 (13:39→23:49)
[2020-07-02] MEDS ORDERED: MIDAZOLAM 100MG-0.9% NS 100ML 100 ML IV ONE (17:48)
--- NOTE | 2020-07-02 17:50 | NUR ---
Low temp Casie Hdez, CONSULTING SOFTWARE ENGINEER with [employer], notified of oral temp 95.5, mold presser contacted for [place].
[2020-07-02] MEDS: SODIUM POLYSTYRENE SULFONATE 15 GM/60 ML ML RC SCH (17:51)
--- NOTE | 2020-07-02 19:30 | NUR ---
ASSESSMENT. PT INTUBATED AND SEDATED. VENT SETTINGS: AC/14/40%/500 WITH A PEEP OF 5. NO OBVIOUS DISTRESS NOTED. PT DOES NOT FOLLOW COMMANDS. PT JAUNDICED. RIGHT NARE 16FR NGT IN PLACE. 16FR MATAMOROS CATH IN SITU DRAINING REDDISH FOREIGN URINE WITH SEDIMENT NOTED. ASSESSMENT COMPLETED, SEE FLOW SHEETS.
--- NOTE | 2020-07-02 20:00 | NUR ---
QUINTEN CARMONA APPLIED FOR TEMP 98.5 ORALLY
[2020-07-02] MEDS: PHENYLEPHRINE HCL 100 MG in SODIUM CHLORIDE 0.9% 250 ML IV SCH (21:49)
[2020-07-02] MEDS: VASOPRESSIN 40 UNITS in SODIUM CHLORIDE 0.9% 40 ML IV SCH (21:50)
--- NOTE | 2020-07-02 22:00 | NUR ---
TEMP TEMP ORALLY 99. QUINTEN STOPPED. SEE VITAL SIGNS FOR TEMPS
--- NOTE | 2020-07-02 23:00 | NUR ---
VITAL SIGNS BP STABLE, SEE FLOW SHEET, WEANING LEANNE
[2020-07-03] VITALS (24 sets, daily range): BP systolic 87–136; BP diastolic 58–98
[2020-07-03] MEDS: LEVETIRACETAM 250 MG in SODIUM CHLORIDE 0.9% 100 ML IV SCH ×2 (00:47→14:52)
[2020-07-03 03:53] LABS: BASOPHILS % (AUTO) 0.2 % (0.0-5.0); EOSINOPHILS % (AUTO) 1.1 % (0.0-8.0); LYMPHOCYTES % (AUTO) 13.5 % (21.0-51.0); MEAN CORPUSCULAR HEMOGLOBIN 31.7 pg (27.0-33.0); MEAN CORPUSCULAR HGB CONC 35.5 g/dL (32.0-36.0); MEAN CORPUSCULAR VOLUME 89.2 fL (79-99); MONOCYTES % (AUTO) 10.9 % (3.0-13.0); NEUTROPHILS % (AUTO) 73.5 % (40.0-77.0); PLATELET COUNT (AUTO) 129 K/uL (130-400); RED BLOOD CELL COUNT(AUTO) 3.25 MIL/uL (4.50-6.20); RED CELL DISTRIBUTION WIDTH 14.9 % (11.0-15.5); WHITE BLOOD COUNT (AUTO) 9.3 K/uL (4.8-10.8)
[2020-07-03 04:07] LABS: CREATININE 1.6 mg/dL (0.5-1.5); POTASSIUM 4.5 mmol/L (3.5-5.1)
[2020-07-03 04:33] LABS: % IRON SATURATION 36.9 % (30-44)
[2020-07-03] MEDS: FOSPHENYTOIN SODIUM 100 MG in SODIUM CHLORIDE 0.9% 50 ML IV SCH ×3 (05:16→21:23)
[2020-07-03] MEDS: METOCLOPRAMIDE 10 MG/2 ML VIAL IVP SCH ×3 (06:32→18:02)
[2020-07-03] MEDS: PHENYLEPHRINE HCL 100 MG in SODIUM CHLORIDE 0.9% 250 ML IV SCH ×2 (06:33→14:53)
[2020-07-03] MEDS: NOREPINEPHRINE BITARTRATE 32 MG in SODIUM CHLORIDE 0.9% 250 ML IV SCH ×3 (06:34→21:22)
[2020-07-03] MEDS: SODIUM CHLORIDE 1,000 MG TAB PO SCH ×2 (07:59→08:03)
[2020-07-03] MEDS: MIDODRINE HCL 5 MG TABLET PO SCH ×3 (08:00→21:00)
[2020-07-03] MEDS: FLUDROCORTISONE ACETATE 0.1 MG TABLET PO SCH (08:00)
[2020-07-03] MEDS: SODIUM POLYSTYRENE SULFONATE 15 GM/60 ML ML RC SCH (08:04)
[2020-07-03] MEDS: SODIUM CHLORIDE 0.9% 1000ML 1,000 ML IV SCH (09:16)
[2020-07-03] MEDS: ZOSYN 3.375GM+NS 50ML 50 ML IV SCH ×2 (09:16→21:20)
[2020-07-03] MEDS: LACTULOSE 20 GM/30 ML UDCUP PR SCH ×2 (11:46→18:02)
[2020-07-03] MEDS: VANCOMYCIN 750MG + NS 250 ML IV SCH ×2 (11:47)
[2020-07-03] MEDS: DEXTROSE 50%-WATER 50 ML DISP.SYRIN IV PRN (12:12)
[2020-07-03] MEDS: PHARMACY COMMUNICATION MISC SCH ×4 (14:00→21:29)
[2020-07-03] MEDS: ALBUMIN (HUMAN) 5% 250 ML IV SCH ×2 (14:52→21:20)
[2020-07-03] MEDS: OCTREOTIDE ACETATE 100 MCG/ML AMP SQ SCH ×2 (14:56→21:25)
[2020-07-03] MEDS: HYDROCORTISONE SOD SUCCINATE 100 MG/2 ML VIAL IV SCH (18:02)
--- NOTE | 2020-07-03 19:30 | NUR ---
ASSESSMENT PT INTUBATED DOES NOT FOLLOW COMMANDS DOES NOT RESPOND TO VERBAL STIMULI. VENT SETTINGS: AC/14/40%/500 WITH A PEEP OF 5. NO OBVIOUS DISTRESS NOTED. PT JAUNDICED. RIGHT NARE 16FR NGT IN PLACE. 16FR MATAMOROS CATH IN SITU DRAINING REDDISH FOREIGN URINE WITH SEDIMENT NOTED. ASSESSMENT COMPLETED, SEE FLOW SHEETS.
--- NOTE | 2020-07-03 20:00 | NUR ---
FAMILY DIPAK CALLED. UP-DATE GIVEN, QUESTIONS ASKED AND ANSWERED
[2020-07-03] MEDS: PANTOPRAZOLE 40 MG/VIAL IVP SCH (21:23)
--- NOTE | 2020-07-03 22:00 | NUR ---
FAMILY PT'S AND FIVE CHILDREN EACH INDIVIDUALLY CALLED AND SPOKE TO PT. PHONE HELD TO PT'S EAR BY STAFF. FAMILY ENCOURAGED TO EXPRESS FEELINGS, EMOTIONAL SUPPORT PROVIDED.
[2020-07-04] VITALS (19 sets, daily range): BP systolic 91–137; BP diastolic 65–99
[2020-07-04] MEDS: HYDROCORTISONE SOD SUCCINATE 100 MG/2 ML VIAL IV SCH ×4 (00:24→17:54)
[2020-07-04] MEDS: LACTULOSE 20 GM/30 ML UDCUP PR SCH ×4 (00:25→17:54)
[2020-07-04] MEDS: LEVETIRACETAM 250 MG in SODIUM CHLORIDE 0.9% 100 ML IV SCH ×2 (00:25→13:15)
[2020-07-04 03:37] LABS: BASOPHILS % (AUTO) 0.2 % (0.0-5.0); EOSINOPHILS % (AUTO) 0.2 % (0.0-8.0); HEMATOCRIT 28.1 % (42-54); LYMPHOCYTES % (AUTO) 13.8 % (21.0-51.0); MEAN CORPUSCULAR HEMOGLOBIN 31.7 pg (27.0-33.0); MEAN CORPUSCULAR HGB CONC 34.5 g/dL (32.0-36.0); MEAN CORPUSCULAR VOLUME 91.8 fL (79-99); MONOCYTES % (AUTO) 7.1 % (3.0-13.0); NEUTROPHILS % (AUTO) 77.5 % (40.0-77.0); NUCLEATED RED BLOOD CELLS 0.3 % (0.0-0.19); PLATELET COUNT (AUTO) 99 K/uL (130-400); RED BLOOD CELL COUNT(AUTO) 3.06 MIL/uL (4.50-6.20); RED CELL DISTRIBUTION WIDTH 15.2 % (11.0-15.5); WHITE BLOOD COUNT (AUTO) 6.4 K/uL (4.8-10.8)
[2020-07-04 03:52] LABS: ALBUMIN 2.1 g/dL (3.5-5.0); BILIRUBIN,TOTAL 4.3 mg/dL (0.2-1.0); CREATININE 1.4 mg/dL (0.5-1.5); MAGNESIUM 2.7 mg/dL (1.80-2.40); POTASSIUM 4.7 mmol/L (3.5-5.1); TOTAL PROTEIN, SERUM 5.5 g/dL (6.0-8.3)
[2020-07-04] MEDS: ALBUMIN (HUMAN) 5% 250 ML IV SCH ×3 (05:14→21:19)
[2020-07-04] MEDS: FOSPHENYTOIN SODIUM 100 MG in SODIUM CHLORIDE 0.9% 50 ML IV SCH ×3 (05:17→21:31)
[2020-07-04] MEDS: OCTREOTIDE ACETATE 100 MCG/ML AMP SQ SCH ×3 (05:18→21:29)
[2020-07-04] MEDS: METOCLOPRAMIDE 10 MG/2 ML VIAL IVP SCH ×3 (06:19→16:36)
[2020-07-04 06:47] LABS: ABG BASE EXCESS -6.1 mmol/L (-2.0-3.0); ABG HCO3 16.6 mmol/L (21.0-28.0); ABG OXYGEN SATURATION 92.3 % (95.0-99.0); ABG PCO2 26 mmHg (35-48)
[2020-07-04] MEDS: MIDODRINE HCL 5 MG TABLET PO SCH ×3 (07:55→21:00)
[2020-07-04] MEDS: SODIUM CHLORIDE 1,000 MG TAB PO SCH ×2 (07:55→07:58)
[2020-07-04] MEDS: FLUDROCORTISONE ACETATE 0.1 MG TABLET PO SCH (07:55)
[2020-07-04] MEDS: SODIUM POLYSTYRENE SULFONATE 15 GM/60 ML ML RC SCH (07:58)
[2020-07-04] MEDS: PANTOPRAZOLE 40 MG/VIAL IVP SCH ×2 (08:13→21:30)
[2020-07-04] MEDS: ZOSYN 3.375GM+NS 50ML 50 ML IV SCH ×2 (08:13→21:18)
[2020-07-04] MEDS: NOREPINEPHRINE BITARTRATE 32 MG in SODIUM CHLORIDE 0.9% 250 ML IV SCH (08:15)
[2020-07-04] MEDS: FUROSEMIDE 10 MG/ML 2ML VIAL IV SCH ×2 (16:37→21:20)
--- NOTE | 2020-07-04 22:09 | NUR ---
CALLED TO PULL BACK PICC RECOMMENDED BY RADIOLOGIST DR. BATES. 1/3 PICC PORTS CURRENTLY IN USE. OTHER 2 PORTS SWABBED WITH ALCOHOL AND FLUSHED. ALL ARE IN GOOD WORKING ORDER. PICC DRESSING REMOVED ASEPTICALLY. NOTED 9CM EXTERNAL CATHETER CHARTED BY PREVIOUS PICC NURSE. PICC PULLED BACK 5 CM, NOW AT 14CM EXPOSED CATHETER AND NEW CHEST XRAY ORDERED FOR TIP CONFIRMATION. INSERTION SITE CLEANED THOROUGHLY WITH CHLOROPREP AND NEW CENTRAL LINE DRESSING APPLIED USING ASEPTIC TECHNIQUE. ALL 3 PORTS HAVE GOOD BLOOD RETURN, FLUSHED EASILY AND CLAMPED.
[2020-07-05] VITALS (12 sets, daily range): BP systolic 102–122; BP diastolic 66–80
[2020-07-05] MEDS: LEVETIRACETAM 250 MG in SODIUM CHLORIDE 0.9% 100 ML IV SCH (01:00)
[2020-07-05] MEDS: LACTULOSE 20 GM/30 ML UDCUP PR SCH ×4 (01:42→17:23)
[2020-07-05 03:35] LABS: BASOPHILS % (AUTO) 0.3 % (0.0-5.0); EOSINOPHILS % (AUTO) 0.1 % (0.0-8.0); HEMATOCRIT 25.8 % (42-54); LYMPHOCYTES % (AUTO) 18.4 % (21.0-51.0); MEAN CORPUSCULAR HEMOGLOBIN 31.8 pg (27.0-33.0); MEAN CORPUSCULAR HGB CONC 34.5 g/dL (32.0-36.0); MEAN CORPUSCULAR VOLUME 92.1 fL (79-99); MONOCYTES % (AUTO) 8.9 % (3.0-13.0); NEUTROPHILS % (AUTO) 71.3 % (40.0-77.0); PLATELET COUNT (AUTO) 104 K/uL (130-400); RED CELL DISTRIBUTION WIDTH 15.3 % (11.0-15.5)
[2020-07-05 03:54] LABS: ALBUMIN 2.2 g/dL (3.5-5.0); CREATININE 1.3 mg/dL (0.5-1.5); MAGNESIUM 2.1 mg/dL (1.80-2.40); POTASSIUM 3.9 mmol/L (3.5-5.1); THYROID STIMULATING HORMONE 0.13 uIU/mL (0.36-3.74); TOTAL PROTEIN, SERUM 5.1 g/dL (6.0-8.3)
[2020-07-05 03:55] LABS: INR 1.94 (0.85-1.15); PARTIAL THROMBOPLASTIN TIME 51.6 SEC (26.3-35.5); PROTHROMBIN TIME 20.4 SEC (9.6-11.6)
[2020-07-05 04:02] LABS: B-TYPE NATRIURETIC PEPTIDE 438 pg/mL (0-100)
[2020-07-05] MEDS: FUROSEMIDE 10 MG/ML 2ML VIAL IV SCH ×3 (06:19→22:09)
[2020-07-05] MEDS: ALBUMIN (HUMAN) 5% 250 ML IV SCH ×3 (06:19→22:07)
[2020-07-05] MEDS: HYDROCORTISONE SOD SUCCINATE 100 MG/2 ML VIAL IV SCH ×4 (06:20→17:22)
[2020-07-05] MEDS: OCTREOTIDE ACETATE 100 MCG/ML AMP SQ SCH ×3 (06:20→22:10)
[2020-07-05] MEDS: FOSPHENYTOIN SODIUM 100 MG in SODIUM CHLORIDE 0.9% 50 ML IV SCH ×3 (06:21→22:06)
[2020-07-05 07:27] LABS: ABG BASE EXCESS -2.9 mmol/L (-2.0-3.0); ABG HCO3 21.3 mmol/L (21.0-28.0); ABG OXYGEN SATURATION 94.8 % (95.0-99.0); ABG PCO2 36 mmHg (35-48)
[2020-07-05] MEDS: METOCLOPRAMIDE 10 MG/2 ML VIAL IVP SCH ×3 (08:01→17:22)
[2020-07-05] MEDS: ZOSYN 3.375GM+NS 50ML 50 ML IV SCH ×2 (08:01→22:10)
[2020-07-05] MEDS: MIDODRINE HCL 5 MG TABLET PO SCH ×3 (08:01→22:09)
[2020-07-05] MEDS: FLUDROCORTISONE ACETATE 0.1 MG TABLET PO SCH (08:02)
[2020-07-05] MEDS: SODIUM CHLORIDE 1,000 MG TAB PO SCH ×2 (08:02→15:59)
[2020-07-05] MEDS: PANTOPRAZOLE 40 MG/VIAL IVP SCH ×2 (08:58→22:11)
[2020-07-05] MEDS ORDERED: PHARMACY COMMUNICATION MISC SCH (10:30)
[2020-07-05] MEDS: LEVETIRACETAM 500 MG in SODIUM CHLORIDE 0.9% 100 ML IV SCH ×2 (12:05→22:07)
[2020-07-05] MEDS: SODIUM POLYSTYRENE SULFONATE 15 GM/60 ML ML RC SCH (13:56)
[2020-07-06] VITALS (16 sets, daily range): BP systolic 112–127; BP diastolic 71–80
[2020-07-06] MEDS: LACTULOSE 20 GM/30 ML UDCUP PR SCH ×4 (00:35→17:11)
[2020-07-06] MEDS: HYDROCORTISONE SOD SUCCINATE 100 MG/2 ML VIAL IV SCH ×4 (00:36→17:11)
[2020-07-06 04:20] LABS: BASOPHILS % (AUTO) 0.1 % (0.0-5.0); HEMATOCRIT 24.6 % (42-54); LYMPHOCYTES % (AUTO) 17.6 % (21.0-51.0); MEAN CORPUSCULAR HEMOGLOBIN 31.6 pg (27.0-33.0); MEAN CORPUSCULAR HGB CONC 34.1 g/dL (32.0-36.0); MEAN CORPUSCULAR VOLUME 92.5 fL (79-99); MONOCYTES % (AUTO) 9.9 % (3.0-13.0); NEUTROPHILS % (AUTO) 70.9 % (40.0-77.0); NUCLEATED RED BLOOD CELLS 0.4 % (0.0-0.19); PLATELET COUNT (AUTO) 80 K/uL (130-400); RED BLOOD CELL COUNT(AUTO) 2.66 MIL/uL (4.50-6.20); RED CELL DISTRIBUTION WIDTH 15.5 % (11.0-15.5)
[2020-07-06 04:29] LABS: B-TYPE NATRIURETIC PEPTIDE 458 pg/mL (0-100)
[2020-07-06 04:33] LABS: ALBUMIN 2.6 g/dL (3.5-5.0); BILIRUBIN,TOTAL 3.7 mg/dL (0.2-1.0); CREATININE 1.4 mg/dL (0.5-1.5); PHOSPHORUS 4.2 mg/dL (2.5-4.9); POTASSIUM 3.2 mmol/L (3.5-5.1); TOTAL PROTEIN, SERUM 5.3 g/dL (6.0-8.3)
[2020-07-06 04:48] LABS: INR 2.01 (0.85-1.15); PARTIAL THROMBOPLASTIN TIME 54.5 SEC (26.3-35.5); PROTHROMBIN TIME 21.1 SEC (9.6-11.6)
[2020-07-06] MEDS: FUROSEMIDE 10 MG/ML 2ML VIAL IV SCH ×3 (05:43→21:43)
[2020-07-06] MEDS: ALBUMIN (HUMAN) 5% 250 ML IV SCH ×3 (05:43→21:46)
[2020-07-06] MEDS: FOSPHENYTOIN SODIUM 100 MG in SODIUM CHLORIDE 0.9% 50 ML IV SCH ×3 (05:45→21:44)
[2020-07-06] MEDS: OCTREOTIDE ACETATE 100 MCG/ML AMP SQ SCH ×3 (05:45→21:44)
[2020-07-06 07:23] LABS: ABG BASE EXCESS -1.1 mmol/L (-2.0-3.0); ABG HCO3 22.6 mmol/L (21.0-28.0); ABG OXYGEN SATURATION 95.1 % (95.0-99.0); ABG PCO2 35 mmHg (35-48)
[2020-07-06] MEDS: FLUDROCORTISONE ACETATE 0.1 MG TABLET PO SCH (07:28)
[2020-07-06] MEDS: SODIUM CHLORIDE 1,000 MG TAB PO SCH ×2 (07:28→16:41)
[2020-07-06] MEDS: METOCLOPRAMIDE 10 MG/2 ML VIAL IVP SCH ×3 (08:02→17:11)
[2020-07-06] MEDS: ZOSYN 3.375GM+NS 50ML 50 ML IV SCH ×2 (08:02→21:43)
[2020-07-06] MEDS: MIDODRINE HCL 5 MG TABLET PO SCH ×3 (08:02→21:43)
[2020-07-06] MEDS ORDERED: POTASSIUM CHLORIDE 20 MEQ/100 ML BAG IV SCH (09:00)
--- NOTE | 2020-07-06 09:02 | NUR ---
MD VISIT DR. DANICA HAMMONDS, STATED TO GIVE LACTULOSE PER NG TUBE TODAY. ORDERS FOR POTASSIUM REPLACEMENT RECEIVED WELL. Addendum: 07/06/20 at 0913 by KATERYNA BENNETT RN RN ALSO STATED PT NEEDS PARACENTESIS, NO ORDER WAS PUT IN, I WILL FOLLOW UP ONCE ORDER IS IN PLACE.
[2020-07-06] MEDS: PANTOPRAZOLE 40 MG/VIAL IVP SCH ×2 (09:05→21:44)
[2020-07-06] MEDS ORDERED: POTASSIUM CHLORIDE 20MEQ/100ML 100 ML IV ONE (10:15)
[2020-07-06] MEDS: LEVETIRACETAM 500 MG in SODIUM CHLORIDE 0.9% 100 ML IV SCH ×2 (12:21→21:45)
[2020-07-06] MEDS: SODIUM POLYSTYRENE SULFONATE 15 GM/60 ML ML RC SCH (13:36)
--- NOTE | 2020-07-06 13:45 | NUR ---
DR. LUZ HAMMONDS, HE STATED TO HOLD OFF ON PARACENTESIS FOR NOW PATIENT IS STILL ON LEVOPHED AND TO HOLD THE LASIX FOR TODAY.
[2020-07-06] MEDS: NOREPINEPHRINE BITARTRATE 32 MG in SODIUM CHLORIDE 0.9% 250 ML IV SCH (23:08)
[2020-07-07] VITALS (27 sets, daily range): BP systolic 88–144; BP diastolic 59–87
[2020-07-07] MEDS: HYDROCORTISONE SOD SUCCINATE 100 MG/2 ML VIAL IV SCH ×5 (01:24→23:34)
[2020-07-07] MEDS: LACTULOSE 20 GM/30 ML UDCUP PR SCH ×4 (01:24→18:44)
[2020-07-07 03:24] LABS: BASOPHILS % (AUTO) 0.1 % (0.0-5.0); HEMATOCRIT 23.9 % (42-54); LYMPHOCYTES % (AUTO) 18.1 % (21.0-51.0); MEAN CORPUSCULAR HEMOGLOBIN 31.8 pg (27.0-33.0); MEAN CORPUSCULAR HGB CONC 33.9 g/dL (32.0-36.0); MEAN CORPUSCULAR VOLUME 93.7 fL (79-99); MONOCYTES % (AUTO) 11.7 % (3.0-13.0); NEUTROPHILS % (AUTO) 68.2 % (40.0-77.0); NUCLEATED RED BLOOD CELLS 0.2 % (0.0-0.19); PLATELET COUNT (AUTO) 60 K/uL (130-400); RED BLOOD CELL COUNT(AUTO) 2.55 MIL/uL (4.50-6.20); RED CELL DISTRIBUTION WIDTH 15.7 % (11.0-15.5)
[2020-07-07] MEDS: FUROSEMIDE 10 MG/ML 2ML VIAL IV SCH ×3 (06:33→22:00)
[2020-07-07] MEDS: OCTREOTIDE ACETATE 100 MCG/ML AMP SQ SCH ×3 (06:33→21:51)
[2020-07-07] MEDS: FOSPHENYTOIN SODIUM 100 MG in SODIUM CHLORIDE 0.9% 50 ML IV SCH ×3 (06:33→21:45)
[2020-07-07] MEDS: SODIUM CHLORIDE 1,000 MG TAB PO SCH ×2 (08:47→18:52)
[2020-07-07] MEDS: FLUDROCORTISONE ACETATE 0.1 MG TABLET PO SCH (08:48)
[2020-07-07] MEDS: ZOSYN 3.375GM+NS 50ML 50 ML IV SCH ×2 (08:48→20:50)
[2020-07-07] MEDS: PANTOPRAZOLE 40 MG/VIAL IVP SCH ×2 (08:48→21:42)
[2020-07-07] MEDS: MIDODRINE HCL 5 MG TABLET PO SCH ×3 (08:48→20:52)
[2020-07-07] MEDS: METOCLOPRAMIDE 10 MG/2 ML VIAL IVP SCH ×3 (08:51→18:52)
[2020-07-07] MEDS ORDERED: POTASSIUM CHLORIDE 10% ELIXIR 20 MEQ/15 ML UDCUP PO SCH (09:45)
[2020-07-07] MEDS: LEVETIRACETAM 500 MG in SODIUM CHLORIDE 0.9% 100 ML IV SCH ×2 (11:32→22:25)
[2020-07-07] MEDS ORDERED: RIFAXIMIN 200 MG TABLET PO SCH (13:00)
--- NOTE | 2020-07-07 13:11 | NUR ---
RD FOLLOW UP - TUBE FEEDING Recommend initiate continuous Vital AF 1.2 tube feeding at trickle feedings (15mls/hr) for 24 hours. Goal rate 50mls/hr. Recommend H2O flushes at 100mls or less Q4hrs. Recommendations faxed to Day Pt ([phone]), RN notified. NUTRITION NOTE: Improved renal function as per RN. NPO X 7 days. Pt with improved renal function. Volume overload, possible paracentesis. Recommend bowel stimulant and initiate tube feeding. LBM 06/29/20. NGT in place. RD to continue to monitor. Please notify as additional nutrition concerns arise. Thank you. Addendum: 07/07/20 at [address] Amended: Links added.
[2020-07-07] MEDS: RIFAXIMIN 550 MG TABLET PO SCH ×2 (13:41→20:52)
--- NOTE | 2020-07-07 14:45 | NUR ---
RE: PARACENTESIS PATIENT SCHEDULED FOR U/S GD PARACENTESIS. PATIENT UNRESPONSIVE, INTUBATED AND ON LOW DOSE LEVOPHED DRIP. DR Rita BATES NOTIFIED AND CANCELLED PROCEDURE. DR Rita BATES STATED "PATIENT IS UNSTABLE TO BE PERFORMED BY RADIOLOGIST AND DR Manish NOVAK SHOULD ATTEMPT FIRST." Fredy DICKSON RN NOTIFIED OF PROCEDURE OUTCOME.
[2020-07-07] MEDS: SODIUM POLYSTYRENE SULFONATE 15 GM/60 ML ML RC SCH (18:00)
[2020-07-07] MEDS ORDERED: LORAZEPAM 2 MG/ML 1 ML VIAL IVP PRN (23:15)
[2020-07-07] MEDS ORDERED: POTASSIUM CHLORIDE 10MEQ/100ML 100 ML IV PRN (23:15)
[2020-07-07] MEDS ORDERED: POTASSIUM CHLORIDE 20MEQ/100ML 100 ML IV ONE (23:28)
[2020-07-07] MEDS ORDERED: LORAZEPAM 2 MG/ML 1 ML VIAL ONE (23:32)
[2020-07-08] VITALS (31 sets, daily range): BP systolic 66–156; BP diastolic 45–90
[2020-07-08] MEDS: LACTULOSE 20 GM/30 ML UDCUP PR SCH ×4 (01:09→17:52)
[2020-07-08] MEDS: POTASSIUM CHLORIDE 20MEQ/100ML 100 ML IV PRN ×5 (02:40→13:20)
[2020-07-08 04:05] LABS: BASOPHILS % (AUTO) 0.1 % (0.0-5.0); HEMATOCRIT 26.5 % (42-54); LYMPHOCYTES % (AUTO) 15.5 % (21.0-51.0); MEAN CORPUSCULAR VOLUME 94.3 fL (79-99); MONOCYTES % (AUTO) 8.9 % (3.0-13.0); NEUTROPHILS % (AUTO) 74.2 % (40.0-77.0); NUCLEATED RED BLOOD CELLS 0.3 % (0.0-0.19); PLATELET COUNT (AUTO) 68 K/uL (130-400); RED BLOOD CELL COUNT(AUTO) 2.81 MIL/uL (4.50-6.20); RED CELL DISTRIBUTION WIDTH 16.3 % (11.0-15.5)
[2020-07-08 04:22] LABS: ALBUMIN 2.5 g/dL (3.5-5.0); BILIRUBIN,TOTAL 3.5 mg/dL (0.2-1.0); CREATININE 1.5 mg/dL (0.5-1.5); MAGNESIUM 2.3 mg/dL (1.80-2.40); PHOSPHORUS 3.3 mg/dL (2.5-4.9); TOTAL PROTEIN, SERUM 5.5 g/dL (6.0-8.3)
[2020-07-08] MEDS: FOSPHENYTOIN SODIUM 100 MG in SODIUM CHLORIDE 0.9% 50 ML IV SCH ×3 (06:32→22:00)
[2020-07-08] MEDS: FUROSEMIDE 10 MG/ML 2ML VIAL IV SCH ×3 (06:32→22:00)
[2020-07-08] MEDS: OCTREOTIDE ACETATE 100 MCG/ML AMP SQ SCH ×3 (06:33→22:00)
[2020-07-08] MEDS: HYDROCORTISONE SOD SUCCINATE 100 MG/2 ML VIAL IV SCH ×3 (06:33→17:52)
[2020-07-08] MEDS: METOCLOPRAMIDE 10 MG/2 ML VIAL IVP SCH (07:10)
[2020-07-08] MEDS: SODIUM CHLORIDE 1,000 MG TAB PO SCH (07:54)
[2020-07-08] MEDS: ZOSYN 3.375GM+NS 50ML 50 ML IV SCH ×2 (07:55→21:00)
[2020-07-08] MEDS: RIFAXIMIN 550 MG TABLET PO SCH ×2 (07:55→21:00)
[2020-07-08] MEDS: MIDODRINE HCL 5 MG TABLET PO SCH ×3 (07:55→21:00)
[2020-07-08] MEDS: PANTOPRAZOLE 40 MG/VIAL IVP SCH ×2 (07:55→21:00)
[2020-07-08] MEDS: FLUDROCORTISONE ACETATE 0.1 MG TABLET PO SCH (07:55)
[2020-07-08] MEDS ORDERED: POTASSIUM CHLORIDE 10% ELIXIR 20 MEQ/15 ML UDCUP PO SCH (11:15)
[2020-07-08] MEDS: LEVETIRACETAM 500 MG in SODIUM CHLORIDE 0.9% 100 ML IV SCH ×2 (13:21→23:00)
[2020-07-08] MEDS: SODIUM POLYSTYRENE SULFONATE 15 GM/60 ML ML RC SCH (18:00)
[2020-07-09] VITALS (13 sets, daily range): BP systolic 73–148; BP diastolic 51–99
[2020-07-09 03:35] LABS: BASOPHILS % (AUTO) 0.1 % (0.0-5.0); HEMATOCRIT 27.5 % (42-54); LYMPHOCYTES % (AUTO) 13.6 % (21.0-51.0); MEAN CORPUSCULAR HEMOGLOBIN 31.7 pg (27.0-33.0); MEAN CORPUSCULAR HGB CONC 32.7 g/dL (32.0-36.0); MEAN CORPUSCULAR VOLUME 96.8 fL (79-99); MONOCYTES % (AUTO) 8.9 % (3.0-13.0); NEUTROPHILS % (AUTO) 76.3 % (40.0-77.0); NUCLEATED RED BLOOD CELLS 0.9 % (0.0-0.19); PLATELET COUNT (AUTO) 71 K/uL (130-400); RED BLOOD CELL COUNT(AUTO) 2.84 MIL/uL (4.50-6.20); RED CELL DISTRIBUTION WIDTH 17.7 % (11.0-15.5); WHITE BLOOD COUNT (AUTO) 15.6 K/uL (4.8-10.8)
[2020-07-09 03:51] LABS: ALBUMIN 2.6 g/dL (3.5-5.0); BILIRUBIN,DIRECT 2.1 mg/dL (0.0-0.3); BILIRUBIN,TOTAL 3.5 mg/dL (0.2-1.0); CREATININE 1.7 mg/dL (0.5-1.5); MAGNESIUM 2.2 mg/dL (1.80-2.40); POTASSIUM 3.3 mmol/L (3.5-5.1); TOTAL PROTEIN, SERUM 5.5 g/dL (6.0-8.3)
[2020-07-09] MEDS: FOSPHENYTOIN SODIUM 100 MG in SODIUM CHLORIDE 0.9% 50 ML IV SCH ×3 (05:24→22:14)
[2020-07-09] MEDS: HYDROCORTISONE SOD SUCCINATE 100 MG/2 ML VIAL IV SCH ×4 (05:24→17:52)
[2020-07-09] MEDS: FUROSEMIDE 10 MG/ML 2ML VIAL IV SCH ×3 (05:24→22:15)
[2020-07-09] MEDS: LACTULOSE 20 GM/30 ML UDCUP PR SCH ×4 (05:25→17:49)
[2020-07-09] MEDS: OCTREOTIDE ACETATE 100 MCG/ML AMP SQ SCH ×3 (05:26→22:13)
[2020-07-09] MEDS: MIDODRINE HCL 5 MG TABLET PO SCH ×3 (09:05→22:15)
[2020-07-09] MEDS: FLUDROCORTISONE ACETATE 0.1 MG TABLET PO SCH (09:05)
[2020-07-09] MEDS: RIFAXIMIN 550 MG TABLET PO SCH ×2 (09:06→22:16)
[2020-07-09] MEDS: ZOSYN 3.375GM+NS 50ML 50 ML IV SCH ×2 (09:06→22:15)
[2020-07-09] MEDS: PANTOPRAZOLE 40 MG/VIAL IVP SCH ×2 (10:17→22:16)
[2020-07-09] MEDS: LEVETIRACETAM 500 MG in SODIUM CHLORIDE 0.9% 100 ML IV SCH ×2 (12:12→22:15)
[2020-07-09] MEDS: SODIUM POLYSTYRENE SULFONATE 15 GM/60 ML ML RC SCH (18:00)
[2020-07-10] VITALS (23 sets, daily range): BP systolic 110–153; BP diastolic 73–84
--- NOTE | 2020-07-10 00:45 | NUR ---
ASSUME CARE OF PATIENT AT 0045. PATIENT IN NO APPARENT DISTRESS.
[2020-07-10] MEDS: LACTULOSE 20 GM/30 ML UDCUP PR SCH ×5 (00:58→23:49)
[2020-07-10] MEDS: HYDROCORTISONE SOD SUCCINATE 100 MG/2 ML VIAL IV SCH ×5 (00:58→23:48)
[2020-07-10 03:31] LABS: ABG BASE EXCESS -1.4 mmol/L (-2.0-3.0); ABG HCO3 21.7 mmol/L (21.0-28.0); ABG OXYGEN SATURATION 94.3 % (95.0-99.0); ABG PCO2 32 mmHg (35-48)
[2020-07-10] MEDS: FOSPHENYTOIN SODIUM 100 MG in SODIUM CHLORIDE 0.9% 50 ML IV SCH ×3 (05:45→22:34)
[2020-07-10] MEDS: FUROSEMIDE 10 MG/ML 2ML VIAL IV SCH ×3 (05:46→21:42)
[2020-07-10] MEDS: OCTREOTIDE ACETATE 100 MCG/ML AMP SQ SCH ×3 (05:46→21:42)
[2020-07-10 06:04] LABS: ALBUMIN 2.1 g/dL (3.5-5.0); BILIRUBIN,DIRECT 1.9 mg/dL (0.0-0.3); BILIRUBIN,TOTAL 3.8 mg/dL (0.2-1.0); MAGNESIUM 2.3 mg/dL (1.80-2.40); PHOSPHORUS 3.1 mg/dL (2.5-4.9); TOTAL PROTEIN, SERUM 5.6 g/dL (6.0-8.3)
[2020-07-10 06:30] LABS: BASOPHILS % (AUTO) 0.1 % (0.0-5.0); HEMATOCRIT 27.3 % (42-54); MEAN CORPUSCULAR HEMOGLOBIN 32.1 pg (27.0-33.0); MEAN CORPUSCULAR VOLUME 97.5 fL (79-99); MONOCYTES % (AUTO) 5.6 % (3.0-13.0); NEUTROPHILS % (AUTO) 84.2 % (40.0-77.0); NUCLEATED RED BLOOD CELLS 0.6 % (0.0-0.19); PLATELET COUNT (AUTO) 66 K/uL (130-400); RED CELL DISTRIBUTION WIDTH 18.3 % (11.0-15.5); WHITE BLOOD COUNT (AUTO) 16.7 K/uL (4.8-10.8)
[2020-07-10] MEDS: RIFAXIMIN 550 MG TABLET PO SCH ×2 (08:40→21:41)
[2020-07-10] MEDS: FLUDROCORTISONE ACETATE 0.1 MG TABLET PO SCH (08:40)
[2020-07-10] MEDS: ZOSYN 3.375GM+NS 50ML 50 ML IV SCH ×2 (08:40→21:41)
[2020-07-10] MEDS: PANTOPRAZOLE 40 MG/VIAL IVP SCH ×2 (08:40→21:41)
[2020-07-10] MEDS: MIDODRINE HCL 5 MG TABLET PO SCH ×3 (08:40→21:41)
[2020-07-10 12:40] LABS: ALBUMIN 2.3 g/dL (3.5-5.0); CREATININE 1.6 mg/dL (0.5-1.5); TOTAL PROTEIN, SERUM 5.7 g/dL (6.0-8.3)
[2020-07-10] MEDS: LEVETIRACETAM 500 MG in SODIUM CHLORIDE 0.9% 100 ML IV SCH ×2 (12:45→23:00)
[2020-07-10 12:47] LABS: POTASSIUM 2.1 mmol/L (3.5-5.1)
[2020-07-10] MEDS ORDERED: 1/2 NORMAL SALINE 1,000 ML IV ONE (12:50)
[2020-07-10 13:56] LABS: ALBUMIN 2.3 g/dL (3.5-5.0); CREATININE 1.7 mg/dL (0.5-1.5); TOTAL PROTEIN, SERUM 5.7 g/dL (6.0-8.3)
[2020-07-10 13:59] LABS: POTASSIUM 2.1 mmol/L (3.5-5.1)
[2020-07-10] MEDS: POTASSIUM CHLORIDE 20MEQ/100ML 100 ML IV PRN ×4 (14:17→23:37)
[2020-07-10] MEDS: SODIUM POLYSTYRENE SULFONATE 15 GM/60 ML ML RC SCH (17:10)
[2020-07-10] MEDS ORDERED: POTASSIUM CHLORIDE 10% ELIXIR 20 MEQ/15 ML UDCUP ONE (22:17)
[2020-07-11] VITALS (24 sets, daily range): BP systolic 103–136; BP diastolic 68–89
[2020-07-11 05:02] LABS: BASOPHILS % (AUTO) 0.1 % (0.0-5.0); HEMATOCRIT 28.8 % (42-54); LYMPHOCYTES % (AUTO) 6.9 % (21.0-51.0); MEAN CORPUSCULAR HEMOGLOBIN 32.6 pg (27.0-33.0); MONOCYTES % (AUTO) 6.3 % (3.0-13.0); NEUTROPHILS % (AUTO) 86.1 % (40.0-77.0); NUCLEATED RED BLOOD CELLS 0.7 % (0.0-0.19); PLATELET COUNT (AUTO) 63 K/uL (130-400); RED BLOOD CELL COUNT(AUTO) 2.91 MIL/uL (4.50-6.20); RED CELL DISTRIBUTION WIDTH 19.3 % (11.0-15.5); WHITE BLOOD COUNT (AUTO) 17.6 K/uL (4.8-10.8)
[2020-07-11] MEDS: LACTULOSE 20 GM/30 ML UDCUP PR SCH ×4 (05:20→23:29)
[2020-07-11] MEDS: FOSPHENYTOIN SODIUM 100 MG in SODIUM CHLORIDE 0.9% 50 ML IV SCH ×3 (05:20→21:57)
[2020-07-11] MEDS: HYDROCORTISONE SOD SUCCINATE 100 MG/2 ML VIAL IV SCH ×4 (05:20→23:29)
[2020-07-11 05:21] LABS: ALBUMIN 2.2 g/dL (3.5-5.0); BILIRUBIN,DIRECT 2.3 mg/dL (0.0-0.3); BILIRUBIN,TOTAL 4.2 mg/dL (0.2-1.0); CREATININE 1.7 mg/dL (0.5-1.5); MAGNESIUM 3.2 mg/dL (1.80-2.40); PHOSPHORUS 2.7 mg/dL (2.5-4.9); TOTAL PROTEIN, SERUM 5.8 g/dL (6.0-8.3)
[2020-07-11] MEDS: FUROSEMIDE 10 MG/ML 2ML VIAL IV SCH ×2 (05:21→07:19)
[2020-07-11] MEDS: OCTREOTIDE ACETATE 100 MCG/ML AMP SQ SCH ×3 (06:07→21:56)
--- NOTE | 2020-07-11 06:44 | NUR ---
PATIENT UPDATE Pt nonresponsive, comatose, withdraws sometimes to pain stimuli. With gen swelling, abdomen tympanitic, positive for fluid wave, with ascites. Tube feeding at 20 cc/hr with residuals bet 40-50 cc's . Potassium recheck went up to 2.4 fr 2.1 last night, administered another 40 meq total of kcl bag through the picc line and administered 40 meq kcl elixir per ngt, with k+ level up to 3.0 this am. Continues with the levophed drip at 0.12 mcg/kg/min, bp running mostly in the 120's mmhg systolic, pt also on the midodrine per ngt. Repositioned every 2 hrs for pressure relief, lidoderm pad in the coccyx area. updated with the pt's overall status last night, concerns addressed. Had been off sedation since 07/05, unable to follow commands, flicker eyelids with pupillary check, pupils 5 mm and very sluggish. Running NSR in the monitor, no ectopies noted. No signs of pain as per behavioral scale.
[2020-07-11] MEDS: FLUDROCORTISONE ACETATE 0.1 MG TABLET PO SCH (07:55)
[2020-07-11] MEDS: PANTOPRAZOLE 40 MG/VIAL IVP SCH ×2 (07:55→20:54)
[2020-07-11] MEDS: RIFAXIMIN 550 MG TABLET PO SCH ×2 (07:55→20:54)
[2020-07-11] MEDS: POTASSIUM CHLORIDE 20MEQ/100ML 100 ML IV PRN ×6 (07:55→23:29)
[2020-07-11] MEDS: ZOSYN 3.375GM+NS 50ML 50 ML IV SCH (08:09)
[2020-07-11] MEDS: MIDODRINE HCL 5 MG TABLET PO SCH ×3 (08:10→20:54)
[2020-07-11] MEDS: LEVETIRACETAM 500 MG in SODIUM CHLORIDE 0.9% 100 ML IV SCH (13:26)
--- NOTE | 2020-07-11 14:29 | NUR ---
1300 updated on status, wishes to bring her and 5 siblings, directed her question to superintendent house, verbal DNR given per , will update md & order. Form for spouse to sign upon arrival in chart.
--- NOTE | 2020-07-11 19:45 | NUR ---
PATIENT RECEIVED IN BED, HOB ELEVATED. PATIENT CONT ON VENTILATOR SIMV MODE, TV 450 PEEP 5, PS 15 AND FIO2 30% WITH 100% SATURATION. NGT TUBE WITH VITAL 1.2 AT GOAL RATE OF 20ML/HR. ETT 7.5 @23 LIP. PICC LINE TO MICHAELLE NOTED WITH DRESSING D/I ALL LINES PATENT WITH BLOOD RETURN NOTED. TELE WITH SR 72. PATIENT IS A DNR OF TODAY. PLANS FOR WITHDRAW WHEN FAMILY IS READY. RECTAL TUBE IN PLACE, F/C TO GRAVITY. ASSESSMENT COMPLETED. WILL CONT TO MONITOR CLOSELY. Addendum: 07/11/20 at 2221 by DYLAN MISHRA RN RN PATIENT IS NONRESPONSIVE, OFF SEDATION, EYES OPEN SPONTANEOUSLY, NO WITHDRAW TO PAINFUL STIMULI. PUPILS REACTIVE TO LIGHT.
--- NOTE | 2020-07-11 21:54 | NUR ---
RECEIVED PHONE CALL FROM MRS. DIPAK NOVAK, PT'S SPOUSE. I UPDATED ON STATUS, NO CHANGE. SHE QUESTIONED THE POSSIBILITY OF TAKING PATIENT HOME ON HOSPICE. I INFORMED HER I WILL INFORMED CASE MANAGEMENT AND DAY NURSE TO INFORM MD OF FAMILIES QUESTIONS.
[2020-07-12] VITALS (24 sets, daily range): BP systolic 83–125; BP diastolic 54–84
[2020-07-12] MEDS: LEVETIRACETAM 500 MG in SODIUM CHLORIDE 0.9% 100 ML IV SCH ×3 (01:27→22:59)
[2020-07-12 03:29] LABS: BASOPHILS % (AUTO) 0.1 % (0.0-5.0); HEMATOCRIT 27.3 % (42-54); LYMPHOCYTES % (AUTO) 5.5 % (21.0-51.0); MEAN CORPUSCULAR HEMOGLOBIN 32.1 pg (27.0-33.0); MEAN CORPUSCULAR HGB CONC 32.6 g/dL (32.0-36.0); MEAN CORPUSCULAR VOLUME 98.6 fL (79-99); MONOCYTES % (AUTO) 6.2 % (3.0-13.0); NEUTROPHILS % (AUTO) 87.4 % (40.0-77.0); NUCLEATED RED BLOOD CELLS 0.8 % (0.0-0.19); PLATELET COUNT (AUTO) 69 K/uL (130-400); RED BLOOD CELL COUNT(AUTO) 2.77 MIL/uL (4.50-6.20); RED CELL DISTRIBUTION WIDTH 19.9 % (11.0-15.5); WHITE BLOOD COUNT (AUTO) 15.5 K/uL (4.8-10.8)
[2020-07-12 03:49] LABS: ALBUMIN 1.9 g/dL (3.5-5.0); CREATININE 1.4 mg/dL (0.5-1.5); MAGNESIUM 2.5 mg/dL (1.80-2.40); PHOSPHORUS 2.4 mg/dL (2.5-4.9); POTASSIUM 3.6 mmol/L (3.5-5.1); TOTAL PROTEIN, SERUM 5.6 g/dL (6.0-8.3)
[2020-07-12] MEDS: HYDROCORTISONE SOD SUCCINATE 100 MG/2 ML VIAL IV SCH ×4 (05:48→23:17)
[2020-07-12] MEDS: FOSPHENYTOIN SODIUM 100 MG in SODIUM CHLORIDE 0.9% 50 ML IV SCH ×3 (05:48→20:08)
[2020-07-12] MEDS: LACTULOSE 20 GM/30 ML UDCUP PR SCH ×4 (05:49→23:17)
[2020-07-12] MEDS: OCTREOTIDE ACETATE 100 MCG/ML AMP SQ SCH ×3 (05:49→20:09)
[2020-07-12] MEDS: FLUDROCORTISONE ACETATE 0.1 MG TABLET PO SCH (07:40)
[2020-07-12] MEDS: PANTOPRAZOLE 40 MG/VIAL IVP SCH ×2 (07:55→20:08)
[2020-07-12] MEDS: RIFAXIMIN 550 MG TABLET PO SCH ×2 (07:55→20:08)
[2020-07-12] MEDS: MIDODRINE HCL 5 MG TABLET PO SCH ×3 (07:55→20:08)
[2020-07-12] MEDS: POTASSIUM CHLORIDE 20MEQ/100ML 100 ML IV PRN (07:56)
--- NOTE | 2020-07-12 09:00 | NUR ---
Rectal tube replaced Rectal tube found to be leaking. Replaced with new tube without incident.
[2020-07-12 16:33] LABS: ABG BASE EXCESS -4.9 mmol/L (-2.0-3.0); ABG HCO3 17.8 mmol/L (21.0-28.0); ABG OXYGEN SATURATION 94.4 % (95.0-99.0); ABG PCO2 28 mmHg (35-48)
--- NOTE | 2020-07-12 17:50 | NUR ---
Family and withdrawal of care. Pt's called and stated that she and her children have decided to withdraw care, will call in am to arrange time with nurse.
[2020-07-13] VITALS (19 sets, daily range): BP systolic 79–121; BP diastolic 51–80
[2020-07-13 03:24] LABS: BASOPHILS % (AUTO) 0.1 % (0.0-5.0); HEMATOCRIT 28.5 % (42-54); LYMPHOCYTES % (AUTO) 5.4 % (21.0-51.0); MEAN CORPUSCULAR HEMOGLOBIN 33.8 pg (27.0-33.0); MEAN CORPUSCULAR HGB CONC 33.7 g/dL (32.0-36.0); MEAN CORPUSCULAR VOLUME 100.4 fL (79-99); MONOCYTES % (AUTO) 5.4 % (3.0-13.0); NEUTROPHILS % (AUTO) 88.5 % (40.0-77.0); NUCLEATED RED BLOOD CELLS 0.6 % (0.0-0.19); PLATELET COUNT (AUTO) 66 K/uL (130-400); RED BLOOD CELL COUNT(AUTO) 2.84 MIL/uL (4.50-6.20); RED CELL DISTRIBUTION WIDTH 20.6 % (11.0-15.5)
[2020-07-13 03:33] LABS: CREATININE 1.4 mg/dL (0.5-1.5); POTASSIUM 3.5 mmol/L (3.5-5.1)
[2020-07-13] MEDS: HYDROCORTISONE SOD SUCCINATE 100 MG/2 ML VIAL IV SCH (05:15)
[2020-07-13] MEDS: LACTULOSE 20 GM/30 ML UDCUP PR SCH (05:15)
[2020-07-13] MEDS: OCTREOTIDE ACETATE 100 MCG/ML AMP SQ SCH (05:15)
[2020-07-13] MEDS: FOSPHENYTOIN SODIUM 100 MG in SODIUM CHLORIDE 0.9% 50 ML IV SCH (05:15)
[2020-07-13] MEDS: PANTOPRAZOLE 40 MG/VIAL IVP SCH (08:18)
[2020-07-13] MEDS: MIDODRINE HCL 5 MG TABLET PO SCH (08:18)
[2020-07-13] MEDS: RIFAXIMIN 550 MG TABLET PO SCH (08:18)
[2020-07-13] MEDS ORDERED: MORPHINE SULFATE 2 MG/ML 1ML SYG IVP SCH (09:30)
[2020-07-13] MEDS ORDERED: LORAZEPAM 2 MG/ML 1 ML VIAL IVP PRN (09:30)
[2020-07-13] MEDS ORDERED: MORPHINE SULFATE 2 MG/ML 1ML SYG IV PRN (09:30)
--- NOTE | 2020-07-13 09:35 | NUR ---
09- Notified Dr Avery of family's decision to withdraw care. MD gave comfort care orders 909 -Notified Michael Carrion ROOF FIXER of family's decision to withdraw care on patient. ROOF FIXER gave extubation and further comfort care orders. 914 - Notified KISHAN of patient's declining status. Spoke with claims customer service representative Michael Forrest. . TOSA to follow up with RN 0920 - Made spouse aware that she could come see patient prior to withdrawal of care.
--- NOTE | 2020-07-13 11:10 | NUR ---
Pt extubated. Levophed stopped. Spouse at bedside. Ahsan from [facility] requesting cardiac time of be called.
--- NOTE | 2020-07-13 11:30 | NUR ---
SW informed by OREN/Aria of family decision to withdraw. SW visited pt's bedside; spouse present and was asked if she would like Pastoral/Modeling Director services. Pt's spouse stated that she would appreciate visit from Modeling Director. SW contacted Modeling Directorандрей Torres and referral made to her. Chaplain Torres to patient's bedside for prayers alongside spouse and this worker. Emotional support provided. No other SS needs.
[2020-07-13] MEDS ORDERED: PHARMACY COMMUNICATION MISC SCH (17:15)
--- NOTE | 2020-07-13 18:24 | NUR ---
1600 - Report given to nurse on 3rd floor. Patient transferred to room 313. Spouse at bedside.
--- NOTE | 2020-07-13 20:00 | NUR ---
ASSESS SHIFT ASSESSMENT DONE, PLEASE REFER TO CHART. PT ONLY OPENS HIS EYES BUT DOES NOT RESPOND. PT IS COMFORT MEASURES ONLY. SPOUSE IS ALLOWED TO STAY AND FAMILY VISITING 2 AT A TIME. KEPT COMFORTABLE IN BED. WILL MONITOR PT. Addendum: 07/13/20 at 2322 by DEEP RASMUSSEN RN RN Amended: Links added.
--- NOTE | 2020-07-13 21:30 | NUR ---
ROUNDS PACKAGING SALES REPRESENTATIVE WENT TO CHECK ON PT. PT'S SPOUSE REQUESTED ANOTHER BLANKET FOR PT. PCP ALREADY BROUGHT IN RECLINER INTO THE ROOM FOR PT'S SPOUSE. WILL CONTINUE TO MONITOR.
--- NOTE | 2020-07-14 02:00 | NUR ---
ROUNDS PT CALM AND QUITE. NO S/SX OF RESTLESS NOR PAINS. KEPT COMFORTABLE AND RESTED. SPOUSE AT BEDSIDE.
[2020-07-14 04:02] VITALS: BP 83/55
--- NOTE | 2020-07-14 04:45 | NUR ---
BATHE PCP IN AND GAVE PT A BED BATH. PT STILL NON-VERBAL AND ONLY OPENS HIS EYES. POSITIONED COMFORTABLY IN BED. FOR MORE CARE.
--- NOTE | 2020-07-14 05:10 | NUR ---
SUCTION NOTED PT TO BE GURGLING. FAMILY REQUESTED FOR SUCTIONING. RT, CALLED TO HELP FOR SUCTIONING.
[2020-07-14 08:50] VITALS: BP 80/53
[2020-07-14 11:08] VITALS: BP 79/55
--- NOTE | 2020-07-14 13:45 | NUR ---
CODE STATUS CHANGES IN ROOM STATES THAT SHE WANT THE CODE STATUS TO A FULL CODE , ORDER CHANGED PLACED , AND PHYSICIAN PAGED
[2020-07-14 17:13] VITALS: BP 85/52
[2020-07-14 19:27] VITALS: BP 90/55
[2020-07-14 23:29] VITALS: BP 91/57
[2020-07-15 03:37] VITALS: BP 103/54
--- NOTE | 2020-07-15 09:38 | NUR ---
CODE STATUS CHANGE DR MISHRA ROUNDED ON PATIENT AND WAS UPDATE ON PATIENT CODE STATUS CHANGES , AND WANTED TO TALK TO HIM , CALL AND DR MISHRA REVIEWED HIS CONDITION AND ASK PATIENT DIPAK NOVAK HOW SHE WANT PRECEDED . SHE WANTED THE PATIENT TO HAVE FEEDING PER TUBE , AND BLOOD PRODUCTS IF NEEDED, DO NOT RESUSCITATIVE AND DO NOT INTUBATION. FORM COMPLETED TO REFLECTING WISHES, DNR STICKER PLACED ON CHART AND DNR BAND PLACED ON PATIENT.
--- NOTE | 2020-07-15 09:38 | NUR ---
ETHEL trigger for 's request wants information from Hospice SW telephoned pt's ; no answer & message left to contact this worker.
[2020-07-15 09:40] VITALS: BP 73/52
--- NOTE | 2020-07-15 11:22 | NUR ---
RD FOLLOW UP - CHANGE TUBE FEEDING FORMULA RECOMMENDED PT WITH VOLUME OVERLOAD (BLE 3+ PITTING EDEMA, BUE 4+ PITTING EDEMA). HYPERNATREMIA. RECOMMEND CHANGE FORMULA TO SUPLENA 1.8, TRICKLE FEEDS INITIATED AT 15MLS/HR. GOAL RATE 20MLS/HR. RECOMMEND H2O FLUSHES 160ML Q4HRS. RECOMMENDATIONS FAXED TO Curtis RN NOTIFIED. RD TO CONTINUE TO MONITOR. PLEASE NOTIFY RD ADDITIONAL NUTRITION CONCERNS ARISE. THANK YOU.
[2020-07-15 11:34] VITALS: BP 78/48
--- NOTE | 2020-07-15 15:00 | NUR ---
ETHEL visited pt's room after being notified that spouse was at bedside. SW provided information on home hospice as well as GIP; spouse voiced an understanding and said she would speak with their children first before making a decision. SW asked spouse to notify staff or this worker if she decides that she would like to proceed with hospice. Pt's spouse requesting permission for to visit patient for [facility]. Spouse informed that SW would contact amy. ETHEL contacted Heather/Amy of [place] and was informed that Father Jordan is on vacation and suggested family have their own [place] galvanizer zinc visit patient. ETHEL spoke with Embroiderer Hand Sarina Haines re-absent and permission granted for to visit patient; SW informed spouse who stated she will notify family to contact .
[2020-07-15 16:42] VITALS: BP 74/53
--- NOTE | 2020-07-15 16:56 | NUR ---
RD UPDATE RD notified, Bolus feedings needed. Recommend Bolus 2 cans Suplena per day. Free H2O Flush of 160mls before and after each feeding. Two additional feedings at 4PM & 6PM. Pending possible Comfort measures. Pt is DNR. RD to continue to follow.
[2020-07-15 20:00] VITALS: BP 74/51
[2020-07-16 03:51] VITALS: BP 79/45
[2020-07-16 08:00] VITALS: BP 88/52
--- NOTE | 2020-07-16 14:30 | NUR ---
PRONOUNCEMENT CALLED TO ROOM BY NURSE, PT IS UNRESPONSIVE, NO HEART TONES, PUPILS FIXED AND NON REACTIVE. SPOUSE AT BEDSIDE, PRIMARY NURSE AND CN IN ATTENDANCE. PT IS DNR. PRONOUNCED AT THIS TIME.
--- NOTE | 2020-07-16 15:56 | NUR ---
NURSE NOTE PATIENT WAS PRONOUNCED AT [address] MISHRA AT 1445 VIA PAGER AND DIRECT CALL TO OFFICE. PERFORMED FOLLOW UP CALL TO DR. MISHRA AT 1530 NO RESPONSE OR CALL BACK AT THIS TIME. NOTIFIED WALL TAPER HELPER AND MENTAL MEASUREMENTS TEACHER. PATIENT WAS AT THE BEDSIDE PROVIDED EMPATHY AND COMFORT TO THE FAMILY. PERFORMED DOCUMENTATION FOR AND CONTACTED THE [employer]GAN DONATION INQUIRY LINE.
== END 2020-07-16 14:30 | disposition expired | DRG 207 ==
LOC: EDH 08:24 → EDHIP 10:18 → OBSVTOIN 10:18 → 3CH 18:07 → DAHIP 06-30 17:02 → 3CH 07-13 18:01
PROVIDERS: ADMIT Internal Medicine Nephrology; ATTEND Internal Medicine Nephrology
PROC: 0W9G3ZZ Drainage of Peritoneal Cavity, Percutaneous Approach (ICD-10-PCS; 2020-06-28)
PROC: 5A1955Z Respiratory Ventilation, Greater than 96 Consecutive Hours (ICD-10-PCS; principal; 2020-06-30)
PROC: 0BH17EZ Insertion of Endotracheal Airway into Trachea, Via Natural or Artificial Opening (ICD-10-PCS; 2020-06-30)
PROC: 0D9670Z Drainage of Stomach with Drainage Device, Via Natural or Artificial Opening (ICD-10-PCS; 2020-06-30)
PROC: 02HV33Z Insertion of Infusion Device into Superior Vena Cava, Percutaneous Approach (ICD-10-PCS; 2020-07-01)
PROC: B548ZZA Ultrasonography of Superior Vena Cava, Guidance (ICD-10-PCS; 2020-07-01)
DX: J96.01 Acute respiratory failure with hypoxia (principal); K76.7 Hepatorenal syndrome; G93.41 Metabolic encephalopathy; N18.6 End stage renal disease; J18.9 Pneumonia, unspecified organism; A41.9 Sepsis, unspecified organism; E87.0 Hyperosmolality and hypernatremia; G93.1 Anoxic brain damage, not elsewhere classified; K92.0 Hematemesis; I12.0 Hypertensive chronic kidney disease with stage 5 chronic kidney disease or end stage renal disease; E87.1 Hypo-osmolality and hyponatremia; N39.0 Urinary tract infection, site not specified; K56.609 Unspecified intestinal obstruction, unspecified as to partial versus complete obstruction; K70.31 Alcoholic cirrhosis of liver with ascites; I46.9 Cardiac arrest, cause unspecified; R57.8 Other shock; E16.2 Hypoglycemia, unspecified; Z66 Do not resuscitate; Z51.5 Encounter for palliative care; E87.5 Hyperkalemia; E87.6 Hypokalemia; K72.90 Hepatic failure, unspecified without coma; D63.8 Anemia in other chronic diseases classified elsewhere; E87.70 Fluid overload, unspecified; Z99.2 Dependence on renal dialysis
CPT/HCPCS: 31500; 36415; 36600; 49083; 70450; 70551; 71045; 71250; 74018; 80048; 80053; 80076; 80177; 80185; 80202; 81001; 82140; 82270; 82435; 82550; 82803; 82947; 82948; 83540; 83550; 83605; 83735; 83874; 83880; 84100; 84132; 84145; 84295; 84439; 84443; 84484; 85018; 85025; 85027; 85610; 85730; 87040; 87071; 87077; 87088; 87186; 87205; 87324; 89051; 92950; 93005; 93306; 93356; 93970; 94002; 94003; 95816; 96365; A4344; C1751; C1894; C9113; G0378; J1720; J1940; J1953; J2060; J2250; J2354; J2370; J2405; J2543; J2765; J3370; J3480; J3490; J7030; J7050; J7070; J7120; P9045; P9046; Q2009